=== PATIENT | female | born 1990 | race Caucasian/White ===

== ENCOUNTER → 2017-04-04 | Outpatient (CLI) | payer BC ==
[~2017-04-04] MED LIST: ALBUAER2 INH; CLR10 PO; ETONMIS VAGRING; IBUP-1050 PO; MOME50SP5
--- NOTE | 2017-04-04 11:35 | DIAGNOSTIC IMAGING REPORT ---
SINUS CT CT DOSE: 551.05 mGy.cm HISTORY: RHINITIS, NON ALLERGENIC TECHNIQUE: Multiaxial CT images of the paranasal sinuses were performed and reformatted in the coronal plane without the use of contrast. A dose lowering technique was utilized adhering to the principles of ALARA. COMPARISON: None. FINDINGS: The frontal sinuses, ethmoid air cells, sphenoid sinuses, and bilateral maxillary antra are clear. The mastoid air cells are clear. The bilateral ostiomeatal units are patent. The nasal septum is midline. The orbits are unremarkable. The right anterior clinoid is pneumatized. The lamina papyracea and overall floors are intact. A 4 mm right-sided Ethan cell. The visualized brain parenchyma is unremarkable. IMPRESSION: The paranasal sinuses and mastoid air cells are clear. Electronically signed by: Francisco J Bran M.D. 04/04/2017 11:33 AM Dictated Date/Time: 04/04/2017 11:29 AM
== END | disposition home or self-care (01) ==
LOC: C.CTS 10:49
PROVIDERS: ATTEND Allergy & Immunology
DX: J31.0 Chronic rhinitis (principal); J32.9 Chronic sinusitis, unspecified

== ENCOUNTER 2023-07-08 03:09 | Inpatient (IN) ==
[2023-07-08] MEDS ORDERED: OXYTOCIN 30 UNITS/NSS 30 UNITS/500 ML BAG IV PRN ×2 (04:07→16:02)
[2023-07-08] MEDS ORDERED: LIDOCAINE 1% LOCAL 20 ML VIAL INFIL PRN (04:07)
[2023-07-08] MEDS ORDERED: CALCIUM CARBONATE 500 MG CHEWABLE TAB PO PRN (04:15)
[2023-07-08] MEDS ORDERED: BUTORPHANOL TARTRATE 1 MG/ML VIAL IV PRN (04:16)
--- NOTE | 2023-07-08 04:23 | History & Physical Report ---
Date of Service July 08, 2023 Assessment & Plan (1) Uterine contractions at greater than 20 weeks of gestation: Plan: 32-year-old G1, P0 at 40 weeks and 1 day gestation presenting today with contractions, early labor, Vital signs stable afebrile, heart rate reassuring, GBS negative, Discussed the options of induction, patient desires expectant management for few hours so that she can ambulate, and agrees for augmentation with oxytocin later, Plan to admit, IV fluids, monitor, labs, ambulate, and start oxytocin per protocol, All questions were answered. (2) Post-term , 40-42 weeks of gestation: Admission and Anticipated Discharge Date Admission Date: July 08, 2023 History of Present Illness Chief Complaint: Contractions Primary Care Provider: NO PCP Patient is a 32-year-old G1, P0 at 40 weeks and 1 day gestation who started contractions around midnight. She also had pinkish bloody discharge since 8 PM with no gross leaking. Contractions have been every 4-5 minutes, pain is 5 out of 10. She does not want any pain medications nor epidural for now. She reports good movements. She was originally scheduled for induction of labor for this morning. Her has been uncomplicated except asthma, takes inhaler as needed. GBS negative. Allergies Allergy/AdvReac Type Severity Reaction Status Date / Time fluticasone AdvReac Migraine Verified 07/08/23 03:32 Home Medications Medication Instructions Recorded Confirmed Type Albuterol (Ventolin Hfa) 2 puff inhalation QID PRN asthma 04/06/15 07/08/23 History ##0 Mometasone Furoate (Nasonex) 2 spray NA DAILY #0 BTLS 04/06/15 07/08/23 History enomsplq-sdh-Ns-FA 1 mg 1 tab PO DAILY 07/08/23 07/08/23 History tablet Patient History Medical History GERD (gastroesophageal reflux disease) Asthma Use PRN inhaler, not used in a long time Surgical History [place] teeth extracted Family History Uncle Hypertension Grandfather (Maternal) Hypertension Diabetes Mother Diabetes Uncle Kidney disease Grandmother (Maternal) Thyroid disease Social History Smoking Status: Never smoker Hx Alcohol Use: No Hx Substance Use: No Preferred Language: Japanese Communication Ability: Effective Supervisor Waterproofing Required: No Beliefs That Will Affect Care: None marital status: Current Living Situation: Spouse Current Living Situation Comment: house with Other Information That Helps Us Care for You: No Feels Safe at Home: Yes Assistive Devices: None BOAT OUTFITTER History No history of STDs, no history of chlamydia, gonorrhea, herpes Review of Systems as per Subjective / HPI Physical Exam Constitutional: WD/WN, vitals as above well developed, well nourished and comfortable Gastrointestinal (Abdomen): normal bowel sounds, soft, nontender, no hepatosplenomegaly (Gravid) Genitourinary: normal external appearance OB Exam Abdomen: + vertex Manual OB Exam: + cervical dilation 2 cm (2-3), + cervical effacement 70% and + station -2 OB Exam Monitor Tracing: + external uterine monitor used and + category I Results & Data Vital Signs (Past 12 Hours) Vital Signs Temp Pulse Resp BP O2 Del Method 07/08/23 03:40 36.4 C L 18 Room Air 07/08/23 03:36 36.4 C L 84 18 139/79
[2023-07-08] MEDS ORDERED: ALBUTEROL HFA 8 GM INHALER INH PRN (04:24)
[2023-07-08 04:48] LABS: Mean Corpuscular Hgb Conc 34.2 g/dL (32.0-36.0); Mean Corpuscular Volume 93.6 fL (80.0-100.0); Mean Platelet Volume 10.6 fL (9.4-12.4); Platelet Count 290 K/uL (130-400); RDW Coefficient of Variation 13.2 % (11.5-14.5); RDW Standard Deviation 45.1 fL (36.4-46.3); Red Blood Count 4.06 M/uL (4.20-5.40); White Blood Count 11.51 K/ul (4.8-10.8)
--- OUTSIDE RECORDS SUMMARY | 2023-07-08 04:58 | External Medical Summary | Summary of Care ---
Author Name Unknown Organization [facility] Address [address] [facility] [place] [address] Phone [phone] Care Team Providers Care Organizational Effectiveness Director Name Role Phone Evangelina Ordonez PA-C Primary Care Provide r Reason for Visit * Reason Comments Return Visit Encounter Details Date Type Department Care Team (Late st Contact Info) Description 05/28/2023 9:45 AM EST Office Visit Gynecology/Obstetric s Tomasjoleen Kamara [address] [place] [address] Gypsy Miller CRNP [address] [place] [address] Normal in third trimester*; Maternal asthma complicating ; Obesity in , antepartum Allergies Active Allergy Reactions Criticality Noted Date Comments Fluticasone Propionate 12/15/2013 Headaches, does not get with Nasonex documented as of this encounter (statuses as of 05/28/2023) Medications Medication Sig Dispensed Refills Start Date End Date Status albuterol (VENTOLIN HFA) 108 (90 BASE) MCG/ACT inhaler Inhale 2 Puffs by mouth every 4 hours as needed for Cough, Shortness of Breath or Wheezing (and prior exercise). 3 Inhaler 3 07/01/2018 Active montelukast (SINGULAIR) 10 MG TabletIndications: as needed Take 1 Tablet by mouth every evening. Use for worsening persistent asthma symptoms, cough 90 Tab 3 08/02/2019 Active Azelastine HCl 0.1 % Nasal SolutionIndication s:Seasonal allergies Administer into nostril 2 Sprays in the morning AND 2 Sprays before bedtime. For worsening or more persistent nasal symptoms. 30 mL 5 09/18/2021 Active Famotidine 20 MG Oral Tablet (Pepcid)Indication s:Gastroesophageal reflux disease, unspecified whether esophagitis present Take by mouth 1 Tablet in the morning. 30 Tablet 11 09/18/2021 Active Omeprazole 20 MG Oral Capsule Delayed Release (PriLOSEC)Indicati ons:Gastroesophage al reflux disease, unspecified whether esophagitis present Take by mouth 1 Capsule in the morning. 1 hour before the first meal of the day. 30 Capsule 09/18/2021 Active 28-0.8 MG Oral Tablet Take by mouth. 0 Active Nystatin-Triamcino lone 124800-8.1 UNIT/GM-% External Cream (Mycolog)Indicatio ns:Normal in second trimester,Skin disease, fungal Apply topically to affected area 2 times a day. For 2-3 days. 15 g 0 01/17/2023 Active Breast PumpIndications:No rmal in third trimester Pump daily while 1 Each 0 04/29/2023 Active documented as of this encounter (statuses as of 05/28/2023) Active Problems Problem Noted Date Diagnosed Date Normal 12/17/2022 Maternal asthma complicating 3 Obesity in , antepartum 12/17/2022 Overview: Class 1. Early 1 hr GTT normal. 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 Anxiety and depression 10/01/2018 Gastroesophageal reflux disease with esophagitis 08/14/2017 Chronic vasomotor rhinitis 08/14/2017 Recurrent sinus infections 03/28/2017 Intermittent asthma with reliever use up to twic e per week 03/28/2017 Estimated Date of Delivery Comme nts Yes 07/06/2023 Based on Ultraso und documented as of this encounter (statuses as of 05/28/2023) Resolved Problems Problem Noted Date Diagnosed Date Resolved Date Mild persistent asthma without complication 07/16/2017 08/14/2017 Recurrent infections 05/15/2017 018 Rhinitis, nonallergic 03/28/20172017 Asthma, well controlled 03/28/201707/2016 Asthma in remission 09/12/2014 03/28/20 17 Acute sinusitis 06/26/2012 08/05/2013 Asthma, mild intermittent 10/25/2011 Overview: Seasonal NEEDS pcv23 COSTOCHONDRITIS 04/14/2010 08/29/2010 Cough 04/14/2010 08/29/2010 Allergic rhinitis 04/14/2010 03/28/2017 Acute URI 04/14/2010 08/29/2010 Acute bronchitis, complicated 04/14/2010 08/29/2010 Acute sinusitis 04/14/2010 08/29/2010 ADVANCE DIRECTIVE INFORMATION 01/20/2006 08/14/2017 Overview: Not applicable House dust mite allergy 07/2016 Migraine headache 08/14/2017 documented as of this encounter (statuses as of 05/28/2023) Immunizations Name Administration Dates Next Due COVID-19 mRNA, LNP-s, No Pre serve, 2-Dose Series (Moderna) 05/23/2021,04/25/2021 HPV Vaccine, 4-Valent 10/24/2012,05/12/2012,07/24 Hep A - Hepatitis A (ped/adole, 1-18 Yrs) 2008,01/20/2006 Meningococcal Conjugate Vacc ine (Menactra/Menveo) 08/29/2010 PPD 02/18/2021,01/20/2018,01/17/2017 02/20/2021 Pneumococcal Polysaccharide PPV23 (Pneumovax) 09/18/2021 Seasonal Influenza, PF, 6 M & above, IM , (FluLaval or Fluzone) 03/10/2019,03/13/2018 TDAP (age 10 and older)(Boostrix) 04/29/2023 TDAP (age 11 and older)(Adacel) 08/29/2010 documented as of this encounter Social History Tobacco Use Types Packs/Day Years Used Date Smoking Tobacco: Never Smokeless Tobacco: Never Alcohol Use Standard Drinks/Week Comments No 0 (1 standard drink = 0.6 oz pur e alcohol) PHQ-2 Answer Date Recorded PHQ-2 Score 0 03/10/2019 Hunger Vital Sign Answer Date Recorded Within the past 12 months, y ou worried that your food would run out before you got the money to buy more. Never true 04/11/20 23 Within the past 12 months, t he food you bought just didn't last and you didn't have money to get more. Never true 04/11/2023 [place] Depression Scale Answer Date Recorded [place] Depression Scale Total 1 04/11/2023 The thought of harming myself has occurred to me . Never 04/11/2023 Estimated Date of Delivery Comme nts Yes 07/06/2023 Based on Ultraso und Sex and Gender Information Value Date Recorded Sex Assigned at Female 12/28/2019 9:30 AM EDT Gender Identity Female 12/28/2019 9:30 AM EDT Sexual Orientation Straight 12/28/2019 9: 30 AM EDT Job Start Date Occupation Industry Not on file Not on file Not on file documented as of this encounter Last Filed Vital Signs Vital Sign Reading Time Taken Comments Blood Pressure 106/64 05/28/2023 9:55 AM EST Pulse - - Temperature - - Respiratory Rate - - Oxygen Saturation - - Inhaled Oxygen Concentration - - Weight 94.3 kg (208 lb) 05/28/2023 9:55 AM EST Height 167.6 cm (5' 6") 05/28/2023 9:55 AM EST Body Mass Index 33.57 05/28/2023 9:55 AM EST documented in this encounter Progress Notes * Gypsy Miller CRNP - 05/28/2023 10:16 AM EST 34w3d Started with some mild swelling in hands and feet this past weekend, not bad today. No other concerns. Baby is active. No contractions, no bleeding or LOF. AB Cochran * Natalie Kwan LPN - 05/28/2023 9:56 AM EST 34w3d Swelling in jcarlos hands and LE documented in this encounter Plan of Treatment Upcoming Encounters Date Type Department Care Team (Late st Contact Info) Description 06/13/2023 9:00 AM EST Office Visit Gynecology/Obstetrics Sherrie Kamara [address] [place] [address] Charlene Douglas PA-C [address] [place] [address] 11/20/2023 10:00 AM EDT [facility] [address] [place] [phone] Genoveva Kevin DO [address] [place] [address] Health Maintenance Due Date Last Done Comments Depression Screening 03/10/2020 03/10/2019 Pneumococcal Vaccine: Pediat rics (0 to 5 Years) and At-Risk Patients (6 to 64 Years) (2 - PCV) 09/18/2022 09/18/2021 HPV/Co-Test 2022 COVID-19 Vaccine (3 - 2022-2 4 season) 2023 05/23/2021, 04/25/2021 Influenza Vaccine (FLU shot) (#1) 2023 019, 03/13/2018 Cervical Cancer Screening 09/14/2024 Pap Smear 09/14/2024 09/14/2021, 12/25, 01/20/2018, Additional history exists DTaP,Tdap,and Td Vaccines (9 - Td or Tdap) 04/29/2033 04/29/2023, 08/29/2010, 01/10/2005, Additional history exists Hepatitis B Completed 09/10/1993, 09/1992, 01/01/1993 MENINGOCOCCAL (MENACTRA/MENVEO) Completed 1 GARDASIL-HPV IMMUNIZATION SERIES Completed 10/24/2012, 05/12/2012, 08/12/2011 documented as of this encounter Medical Devices Not on filedocumented as of this encounter Visit Diagnoses Diagnosis Normal in third trimester- Primary Maternal asthma complicating Other current maternal conditions classifiable elsewhere, complicating , childbirth, or the puerperium, unspecified as to episode of care Obesity in , antepartum Obesity complicating , childbirth, or the puerperium, antepartum condition or complication documented in this encounter Care Teams Organizational Effectiveness Director Relationship Specialty Start Date End Date Evangelina Ordonez PA-C [address] [facility] [place] [address] PCP - General Physician Head Sugar Reprocess Operator 09/10/21 documented as of this encounter
--- OUTSIDE RECORDS SUMMARY | 2023-07-08 04:58 | External Medical Summary | Summary of Care ---
Author Name Unknown Organization [facility] Address [address] [facility] [place] [address] Phone [phone] Care Team Providers Care Oracle Applications Analyst Name Role Phone Evangelina Ordonez PA-C Primary Care Provide r Reason for Visit * Reason Comments Return Visit Encounter Details Date Type Department Care Team (Late st Contact Info) Description 07/04/2023 11:45 AM EST Office Visit Gynecology/Obstetric s Tomas[facility]elardomonroe Kamara [address] [place] [address] Charlene Douglas PA-C [address] [place] [address] 39 weeks gestation of *; Normal in third trimester; Maternal asthma complicating ; Obesity in , antepartum Allergies Active Allergy Reactions Criticality Noted Date Comments Fluticasone Propionate 12/15/2013 Headaches, does not get with Nasonex documented as of this encounter (statuses as of 07/04/2023) Medications Medication Sig Dispensed Refills Start Date [...] first meal of the day. 30 Capsule 5 09/18/2021 Active 28-0.8 MG Oral Tablet Take by mouth. 0 Active Nystatin-Triamcino lone 821397-2.1 UNIT/GM-% External Cream (Mycolog)Indicatio ns:Normal in second trimester,Skin disease, fungal Apply topically to affected area 2 times a day. For 2-3 days. 15 g 0 01/17/2023 Active Breast PumpIndications:No rmal in third trimester Pump daily while 1 Each 0 04/29/2023 Active documented as of this encounter (statuses as of 07/04/2023) Active Problems Problem Noted Date Diagnosed Date [...] as of this encounter (statuses as of 07/04/2023) Resolved Problems Problem Noted Date Diagnosed Date [...] as of this encounter (statuses as of 07/04/2023) Immunizations Name Administration Dates Next Due COVID-19 [...] money to get more. Never true 04/11/2023 [place] Depression Scale Answer Date Recorded [place] Depression Scale Total 1 04/11/2023 The thought [...] Sign Reading Time Taken Comments Blood Pressure 124/78 07/04/2023 11:43 AM EST Pulse - - Temperature - - Respiratory Rate - - Oxygen Saturation - - Inhaled Oxygen Concentration - - Weight 101.2 kg (223 lb) 07/04/2023 11:43 AM EST Height 167.6 cm (5' 6") 07/04/2023 11:43 AM EST Body Mass Index 35.99 07/04/2023 11:43 AM EST documented in this encounter Progress Notes * Charlene Douglas PA-C - 07/04/2023 11:45 AM EST 39w5d Denies VB, LOF. Has had a few contractions last week, no regularity. Reports pos fm, reports over last week less major movements from baby states baby feels running out of room. More subtle kicks. Doing kick counts, has not done today however due to busy morning. Offered NST, pt politely declines. Recommend she do FKC as she is headed directly home if <10 movements in 2 hours call. Reviewed IOL for postdates, she would like to schedule for postdates. IOL scheduled for only available spot in next 2 weeks. She will be postdates, scheduled 07/08/2023 given instructions. Labor precautions RTC for visits Charlene Douglas PA-C documented in this encounter Nursing Notes * Rosita Iglesias LPN - 07/04/2023 11:47 AM EST 39w5d Would like to schedule IOL documented in this encounter Plan of Treatment Upcoming Encounters Date Type Department Care Team (Late st Contact Info) Description 11/20/2023 10:00 AM EDT Office Visit Sleep Disorders Ctr [facility] [address] [place] [phone] Genoveva Kevin, [address] [place] [address] Health Maintenance Due Date Last Done Comments [...] as of this encounter Visit Diagnoses Diagnosis 39 weeks gestation of - Primary state, incidental Normal in third trimester Maternal asthma complicating Other current maternal conditions classifiable elsewhere, complicating , childbirth, or the puerperium, unspecified as to episode of care Obesity in , antepartum Obesity complicating , childbirth, or the puerperium, antepartum condition or complication documented in this encounter Care Teams Oracle Applications Analyst Relationship Specialty Start Date End Date Evangelina Ordonez PA-C [address] [facility] [place] [address] PCP - General Physician Radiologic Technologist Mammogram 09/10/21 documented as of this encounter
--- OUTSIDE RECORDS SUMMARY | 2023-07-08 04:58 | External Medical Summary | Summary of Care ---
Author Name Unknown Organization [facility] Address [address] [facility] [place] [address] Phone [phone] Care Team Providers Care Client Sales And Service Officer Name Role Phone Evangelina Ordonez PA-C Primary Care Provide r Reason for Visit * Reason Comments Return Visit Encounter Details Date Type Department Care Team (Late st Contact Info) Description 06/20/2023 11:45 AM EST [facility] [address] [place] [phone] Gonzalez Person MD [address] [place] [address] Normal in third trimester*; Maternal asthma complicating ; Obesity in , antepartum Allergies Active Allergy Reactions Criticality Noted Date Comments Fluticasone Propionate 12/15/2013 Headaches, does not get with Nasonex documented as of this encounter (statuses as of 06/20/2023) Medications Medication Sig Dispensed Refills Start Date [...] Take by mouth. 0 Active Nystatin-Triamcino lone 095638-7.1 UNIT/GM-% External Cream (Mycolog)Indicatio ns:Normal in second trimester,Skin disease, fungal Apply topically to affected area 2 times a day. For 2-3 days. 15 g 0 01/17/2023 Active Breast PumpIndications:No rmal in third trimester Pump daily while 1 Each 0 04/29/2023 Active documented as of this encounter (statuses as of 06/20/2023) Active Problems Problem Noted Date Diagnosed Date [...] as of this encounter (statuses as of 06/20/2023) Resolved Problems Problem Noted Date Diagnosed Date [...] as of this encounter (statuses as of 06/20/2023) Immunizations Name Administration Dates Next Due COVID-19 [...] money to get more. Never true 04/11/2023 [place] Depression Scale Answer Date Recorded [place] Depression Scale Total 1 04/11/2023 The thought [...] Sign Reading Time Taken Comments Blood Pressure 128/74 06/20/2023 11:40 AM EST Pulse - - Temperature - - Respiratory Rate - - Oxygen Saturation - - Inhaled Oxygen Concentration - - Weight 100.2 kg (221 lb) 06/20/2023 11:40 AM EST Height 167.6 cm (5' 6") 06/20/2023 11:40 AM EST Body Mass Index 35.67 06/20/2023 11:40 AM EST documented in this encounter Progress Notes * Gonzalez Person MD - 06/20/2023 2:42 PM EST Pt doing well No complains documented in this encounter Nursing Notes * Rosita Iglesias LPN - 06/20/2023 11:45 AM EST 37w5d Light-headedness, dizziness continues as before. Swelling in hands and feet still present, no worse. documented in this encounter Plan of Treatment Upcoming Encounters Date Type Department Care Team (Late st Contact Info) Description 06/27/2023 9:45 AM EST Office Visit Gynecology/Obstetrics [facility] [address] [place] [address] Gypsy Miller CRNP [address] [place] [address] 07/04/2023 11:45 AM EST Office Visit Gynecology/Obstetrics [facility] [address] [place] [address] Charlene Douglas PA-C [address] [place] [address] 11/20/2023 10:00 AM EDT Office Visit [facility] Disorders [facility] [address] [place] [phone] Genoveva Kevin DO [address] [place] [address] Health Maintenance Due Date Last Done Comments [...] complication documented in this encounter Care Teams Client Sales And Service Officer Relationship Specialty Start Date End Date Evangelina Ordonez PA-C [address] [facility] [place] [address] PCP - General Physician Wet Mixer 09/10/21 documented as of this encounter
--- OUTSIDE RECORDS SUMMARY | 2023-07-08 04:58 | External Medical Summary | Summary of Care ---
Author Name Unknown Organization [facility] Address [address] [facility] [place] [address] Phone [phone] Care Team Providers Care Medical Sales Consultant Name Role Phone Evangelina Ordonez PA-C Primary Care Provide r Encounter Details Date Type Department Care Team (Late st Contact Info) Description 06/06/2023 Telephone Gynecology/Obstetrics [facility] [address] [place] [address] Gypsy Miller CRNP [address] [facility] [address] Allergies Active Allergy Reactions Criticality Noted Date Comments Fluticasone Propionate 12/15/2013 Headaches, does not get with Nasonex documented as of this encounter (statuses as of 06/06/2023) Medications Medication Sig Dispensed Refills Start Date [...] Take by mouth. 0 Active Nystatin-Triamcino lone 012565-0.1 UNIT/GM-% External Cream (Mycolog)Indicatio ns:Normal in second trimester,Skin disease, fungal Apply topically to affected area 2 times a day. For 2-3 days. 15 g 0 01/17/2023 Active Breast PumpIndications:No rmal in third trimester Pump daily while 1 Each 0 04/29/2023 Active documented as of this encounter (statuses as of 06/06/2023) Active Problems Problem Noted Date Diagnosed Date [...] as of this encounter (statuses as of 06/06/2023) Resolved Problems Problem Noted Date Diagnosed Date [...] as of this encounter (statuses as of 06/06/2023) Immunizations Name Administration Dates Next Due COVID-19 [...] money to get more. Never true 04/11/2023 [place] Depression Scale Answer Date Recorded [place] Depression Scale Total 1 04/11/2023 The thought [...] on file documented as of this encounter Miscellaneous Notes * Telephone Encounter - Leah Banks RN - 06/06/2023 12:18 PM EST Patient calling in 35w5d with concerns of b/l swelling of ankles and hands. Improves if she is able to rest/elevate Drinking 5 24 oz bottles a day of water Denies CARPENTER/blurry vision Wearing compression stockings, limiting salt intake. Patient Advised that this is normal for at this point. Denies any bleeding, leaking, contractions. Advised patient to continue pushing fluids, wear compression stockings, and changing positions frequently and walking around/resting and elevating frequently. Patient aware to call back with any changes or worsening sx. documented in this encounter Plan of Treatment Upcoming Encounters Date Type Department Care Team (Late st Contact Info) Description 06/13/2023 9:00 AM EST Office Visit Gynecology/Obstetrics Sherrie Kamara [address] [place] [address] Charlene Douglas PA-C [address] [place] [address] 11/20/2023 10:00 AM EDT Office Visit [facility] [address] [place] [phone] Genoveva Kevin DO [address] [place] [address] Health Maintenance Due Date Last Done Comments [...] Not on filedocumented as of this encounter Care Teams Medical Sales Consultant Relationship Specialty Start Date End Date Evangelina Ordonez PA-C [address] [place] [address] PCP - General Physician Handhole Machine Operator 09/10/21 documented as of this encounter
--- OUTSIDE RECORDS SUMMARY | 2023-07-08 04:58 | External Medical Summary ---
Author Name Unknown Address Unknown Organization K01:[facility] [place] - [address] [facility] [address] Laboratory Report Ordering Provider Test Date Status JULIO CESAR BUSTAMANTE 06/13/2023 09:26:34 Final Observation Date Value Abnormality Reference (Units ) Status Streptococcus agalactiae DNA [Presence] in Specimen by NANI with probe detection 06/13/2023 09:26:34 Negative Negative Final No Group B Streptococcus det ected by culture-enhanced PCR (amplified probe).
The collection of vaginal/rectal swab specimen combinations (FDA approved specimen type) is optimal for the detection of Group B Streptococcus. Single source collection (vaginal only or rectal only) or alternate specimen sources may lead to false negative results. Performing Location [facility] [place] - [address] [facility] [address]
--- OUTSIDE RECORDS SUMMARY | 2023-07-08 04:58 | External Medical Summary | Summary of Care ---
Author Name Unknown Organization [facility] Address [address] [place] [address] Phone [phone] Care Team Providers Care Watch Supervisor Name Role Phone Evangelina Ordonez PA-C Primary Care Provide r Reason for Visit * Reason Comments Return Visit Encounter Details Date Type Department Care Team (Late st Contact Info) Description 06/13/2023 9:00 AM EST Office Visit Gynecology/Obstetric s Sherrie Kamara [address] [place] [address] Charlene Douglas PA-C [address] [place] [address] Normal in third trimester*; Maternal asthma complicating ; Obesity in , antepartum Allergies Active Allergy Reactions Criticality Noted Date Comments Fluticasone Propionate 12/15/2013 Headaches, does not get with Nasonex documented as of this encounter (statuses as of 06/13/2023) Medications Medication Sig Dispensed Refills Start Date [...] Take by mouth. 0 Active Nystatin-Triamcino lone 940366-5.1 UNIT/GM-% External Cream (Mycolog)Indicatio ns:Normal in second trimester,Skin disease, fungal Apply topically to affected area 2 times a day. For 2-3 days. 15 g 0 01/17/2023 Active Breast PumpIndications:No rmal in third trimester Pump daily while 1 Each 0 04/29/2023 Active documented as of this encounter (statuses as of 06/13/2023) Active Problems Problem Noted Date Diagnosed Date [...] as of this encounter (statuses as of 06/13/2023) Resolved Problems Problem Noted Date Diagnosed Date [...] as of this encounter (statuses as of 06/13/2023) Immunizations Name Administration Dates Next Due COVID-19 [...] money to get more. Never true 04/11/2023 [place] Depression Scale Answer Date Recorded [place] Depression Scale Total 1 04/11/2023 The thought [...] Sign Reading Time Taken Comments Blood Pressure 104/68 06/13/2023 8:54 AM EST Pulse - - Temperature - - Respiratory Rate - - Oxygen Saturation - - Inhaled Oxygen Concentration - - Weight 99.3 kg (219 lb) 06/13/2023 8:54 AM EST Height 167.6 cm (5' 6") 06/13/2023 8:54 AM EST Body Mass Index 35.35 06/13/2023 8:54 AM EST documented in this encounter Progress Notes * Charlnee Douglas PA-C - 06/13/2023 9:01 AM EST 36w5d Having continued swelling in hands and feet. Also noticing some lightheadedness at times. Worse with prolonged periods of standing. Improved over night. Legs and hands look appropriate today, radial pulses normal BL. BP WNL. Wears compression stockings. Pushing fluids. Offered urine testing, pt declines today. U/S for position -- confirmed cephalic. Due for GBS, collected. Denies VB, LOF, ctx. Pos fm. RTC in 1 week Charlene Douglas PA-C * Rosita Iglesias LPN - 06/13/2023 8:52 AM EST 36w5d GBS today. BL leg swelling, hands and arms as well, lightheadedness, reports BP is getting high readings at home. documented in this encounter Plan of Treatment Upcoming Encounters Date Type Department Care Team (Late st Contact Info) Description 06/13/2023 10:00 AM EST Imaging Radiology [facility] [address]nd [facility] [address] [place] [address] Normal 06/20/2023 11:45 AM EST Office Visit Gynecology/Obstetrics [facility] [address] [place] [address] Gonzalez Person MD [address] [place] [address] 06/27/2023 9:45 AM EST Office Visit Gynecology/Obstetrics [facility] [address] [place] [address] Gypsy Miller CRNP [address] [place] [address] 07/04/2023 11:45 AM EST Office Visit Gynecology/Obstetrics [facility] [address] [place] [address] Charlene Douglas PA-C [address] [place] [address] 11/20/2023 10:00 AM EDT Office Visit Sleep [facility] [address] [place] [phone] Genoveva Kevin DO [address] [place] [address] Pending Results Name Type Priority Associated Diagnoses Date /Time GROUP B STREP CULTURE/PCR Lab Routine Normal in third trimester 06/13/2023 9:26 AM EST Health Maintenance Due Date Last Done Comments [...] Not on filedocumented as of this encounter Results * US PREG LIMITED 1 OR MORE FETUSES (06/13/2023 9:23 AM EST) Anatomical Region Laterality Modality Pelvis, Body Ultrasound 06/13/2023 9:45 AM EST Impressions 06/13/2023 9:43 AM EST IMPRESSION Vertex presentation. Narrative 06/13/2023 9:43 AM EST EXAM US PREG LIMITED 1 OR MORE FETUSES - 06/13/2023 9:23 am HISTORY position check COMPARISON Ultrasound dated 02/14/2023 TECHNIQUE Sonographic examination performed. FINDINGS : Granados Presentation: Vertex heart rate: 144 bpm Procedure Note Mike Marshall MD - 06/13/2023 EXAM US PREG LIMITED 1 OR MORE FETUSES - 06/13/2023 9:23 am HISTORY position check COMPARISON Ultrasound dated 02/14/2023 TECHNIQUE Sonographic examination performed. FINDINGS : [place] Presentation: Vertex heart rate: 144 bpm IMPRESSION IMPRESSION Vertex presentation. Charlene Douglas PA-C RAD ULTRASOUND documented in this encounter Visit Diagnoses Diagnosis Normal in third trimester- Primary Maternal asthma complicating Other current maternal conditions classifiable elsewhere, complicating , childbirth, or the puerperium, unspecified as to episode of care Obesity in , antepartum Obesity complicating , childbirth, or the puerperium, antepartum condition or complication Normal state, incidental documented in this encounter Care Teams Watch Supervisor Relationship Specialty Start Date End Date Evangelina Ordonez PA-C [address] [facility] [place] [address] PCP - General Physician Sandblast Carver 09/10/21 documented as of this encounter
--- OUTSIDE RECORDS SUMMARY | 2023-07-08 04:58 | External Medical Summary | Summary of Care ---
Author Name Unknown Organization [facility] Address [address] [facility] [place] [address] Phone [phone] Care Team Providers Care Spool Fixer Name Role Phone Evangelina Ordonez PA-C Primary Care Provide r Reason for Visit * Reason Comments Return Visit Encounter Details Date Type Department Care Team (Late st Contact Info) Description 06/27/2023 9:45 AM EST Office Visit Gynecology/Obstetric s Tomasjoleen Kamara [address] [place] [address] Gypsy Miller CRNP [address] [place] [address] Normal in third trimester*; Maternal asthma complicating ; Obesity in , antepartum Allergies Active Allergy Reactions Criticality Noted Date Comments Fluticasone Propionate 12/15/2013 Headaches, does not get with Nasonex documented as of this encounter (statuses as of 06/27/2023) Medications Medication Sig Dispensed Refills Start Date [...] Take by mouth. 0 Active Nystatin-Triamcino lone 516903-5.1 UNIT/GM-% External Cream (Mycolog)Indicatio ns:Normal in second trimester,Skin disease, fungal Apply topically to affected area 2 times a day. For 2-3 days. 15 g 0 01/17/2023 Active Breast PumpIndications:No rmal in third trimester Pump daily while 1 Each 0 04/29/2023 Active documented as of this encounter (statuses as of 06/27/2023) Active Problems Problem Noted Date Diagnosed Date [...] as of this encounter (statuses as of 06/27/2023) Resolved Problems Problem Noted Date Diagnosed Date [...] as of this encounter (statuses as of 06/27/2023) Immunizations Name Administration Dates Next Due COVID-19 [...] money to get more. Never true 04/11/2023 [place] Depression Scale Answer Date Recorded [place] Depression Scale Total 1 04/11/2023 The thought [...] Sign Reading Time Taken Comments Blood Pressure 116/68 06/27/2023 9:39 AM EST Pulse - - Temperature - - Respiratory Rate - - Oxygen Saturation - - Inhaled Oxygen Concentration - - Weight 98.9 kg (218 lb) 06/27/2023 9:39 AM EST Height 167.6 cm (5' 6") 06/27/2023 9:39 AM EST Body Mass Index 35.19 06/27/2023 9:39 AM EST documented in this encounter Progress Notes * Gypsy Miller CRNP - 06/27/2023 9:51 AM EST 38w5d Complaints: none Feeling well overall. Good FM. No contractions, bleeding, or LOF. AB Cochran * Natalie Kwan LPN - 06/27/2023 9:39 AM EST 38w5d Denies any issues documented in this encounter Plan of Treatment Upcoming Encounters Date Type Department Care Team (Late st Contact Info) Description 07/04/2023 11:45 AM EST Office Visit Gynecology/Obstetrics Sherrie Kamara [address] [place] [address] Charlene Douglas PA-C [address] [place] [address] 11/20/2023 10:00 AM EDT [facility] [address] [place] [phone] Genoveva Kevin DO [address] [place] [address] Health Maintenance Due Date Last Done Comments [...] complication documented in this encounter Care Teams Spool Fixer Relationship Specialty Start Date End Date Evangelina Ordonez PA-C [address] [facility] [place] [address] PCP - General Physician Water Treatment Plant Supervisor 09/10/21 documented as of this encounter
--- OUTSIDE RECORDS SUMMARY | 2023-07-08 04:58 | External Medical Summary | Summary of Care ---
Author Name Unknown Organization [facility] Address [address] [facility] [place] [address] Phone [phone] Care Team Providers Care Plating Machine Operator Name Role Phone Evangelina Ordonez PA-C Primary Care Provide r Reason for Visit * Reason Comments Return Visit Encounter Details Date Type Department Care Team (Late st Contact Info) Description 04/29/2023 8:30 AM EST Office Visit Gynecology/Obstetric [facility] [address] [place] [address] Gonzalez Person MD [address] [place] [address] Normal in third trimester*; Maternal asthma complicating ; Obesity in , antepartum Allergies Active Allergy Reactions Criticality Noted Date Comments Fluticasone Propionate 12/15/2013 Headaches, does not get with Nasonex documented as of this encounter (statuses as of 04/29/2023) Medications Medication Sig Dispensed Refills Start Date [...] Take by mouth. 0 Active Nystatin-Triamcino lone 569653-1.1 UNIT/GM-% External Cream (Mycolog)Indicatio ns:Normal in second trimester,Skin disease, fungal Apply topically to affected area 2 times a day. For 2-3 days. 15 g 0 01/17/2023 Active Breast PumpIndications:No rmal in third trimester Pump daily while 1 Each 0 04/29/2023 Active documented as of this encounter (statuses as of 04/29/2023) Active Problems Problem Noted Date Diagnosed Date [...] as of this encounter (statuses as of 04/29/2023) Resolved Problems Problem Noted Date Diagnosed Date [...] as of this encounter (statuses as of 04/29/2023) Immunizations Name Administration Dates Next Due COVID-19 mRNA, LNP-s, No Pre serve, 2-Dose Series (Moderna) 05/23/2021,04/25/2021 HPV Vaccine, 4-Valent 10/24/2012,05/12/2012,07/24 Hep A - Hepatitis A (ped/adole, 1-18 Yrs) 2008,01/20/2006 Meningococcal Conjugate Vacc ine (Menactra/Menveo) 08/29/2010 PPD 02/18/2021,01/20/2018,01/17/2017 02/20/2021 Pneumococcal Polysaccharide PPV23 (Pneumovax) 09/18/2021 SEASONAL INFLUENZA, PF, 6 M & Above, IM , (FLULAVAL or FLUZONE) 03/10/2019,03/13/2018 TDAP (age 10 and older)(Boostrix) 04/29/2023 [...] money to get more. Never true 04/11/2023 [place] Depression Scale Answer Date Recorded [place] Depression Scale Total 1 04/11/2023 The thought [...] Sign Reading Time Taken Comments Blood Pressure - - Pulse - - Temperature - - Respiratory Rate - - Oxygen Saturation - - Inhaled Oxygen Concentration - - Weight 90.7 kg (200 lb) 04/29/2023 8:31 AM EST Height 167.6 cm (5' 6") 04/29/2023 8:31 AM EST Body Mass Index 32.28 04/29/2023 8:31 AM EST documented in this encounter Progress Notes * Gonzalez Person MD - 04/29/2023 8:46 AM EST Pt doing well No complaints RTC 2 weeks * Natalie Kwan LPN - 04/29/2023 8:31 AM EST 30w2d Needs tdap documented in this encounter Nursing Notes * Natalie Kwan LPN - 04/29/2023 8:36 AM EST Patient here for tdap injection. Patient doing well no complaints. Injection given IM as ordered. Patient tolerated well. Patient to follow up as directed. Patient instructed to call if any complications. Patient verbalized understanding of instructions given and her follow up appt for 2 weeks Injection site: Right Deltoid Medication Source: Dispensed stock medication' documented in this encounter Plan of Treatment Upcoming Encounters Date Type Department Care Team (Late st Contact Info) Description 05/16/2023 10:45 AM EST Office Visit Gynecology/Obstetrics Sherrie Kamara [address] [place] [address] Gypsy Miller CRNP [address] [place] [address] 11/20/2023 10:00 AM EDT [facility] [address] [place] [phone] Genoveva Kevin DO [address] [place] [address] Health Maintenance Due Date Last Done Comments [...] complication documented in this encounter Care Teams Plating Machine Operator Relationship Specialty Start Date End Date Evangelina Ordonez PA-C [address] [facility] [place] [address] PCP - General Physician Boring Machine Operator Horizontal 09/10/21 documented as of this encounter
--- OUTSIDE RECORDS SUMMARY | 2023-07-08 04:58 | External Medical Summary | Summary of Care ---
Author Name Unknown Organization [facility] Address [address] [facility] [place] [address] Phone [phone] Care Team Providers Care Bus Matron Name Role Phone Evangelina Ordonez PA-C Primary Care Provide r Reason for Visit * Reason Comments Return Visit Encounter Details Date Type Department Care Team (Late st Contact Info) Description 05/16/2023 10:45 AM EST Office Visit Gynecology/Obstetric s Tomasjoleen Kamara [address] [place] [address] Gypsy Miller CRNP [address] [place] [address] Normal in third trimester*; Maternal asthma complicating ; Obesity in , antepartum Allergies Active Allergy Reactions Criticality Noted Date Comments Fluticasone Propionate 12/15/2013 Headaches, does not get with Nasonex documented as of this encounter (statuses as of 05/16/2023) Medications Medication Sig Dispensed Refills Start Date [...] Take by mouth. 0 Active Nystatin-Triamcino lone 494263-7.1 UNIT/GM-% External Cream (Mycolog)Indicatio ns:Normal in second trimester,Skin disease, fungal Apply topically to affected area 2 times a day. For 2-3 days. 15 g 0 01/17/2023 Active Breast PumpIndications:No rmal in third trimester Pump daily while 1 Each 0 04/29/2023 Active documented as of this encounter (statuses as of 05/16/2023) Active Problems Problem Noted Date Diagnosed Date [...] as of this encounter (statuses as of 05/16/2023) Resolved Problems Problem Noted Date Diagnosed Date [...] as of this encounter (statuses as of 05/16/2023) Immunizations Name Administration Dates Next Due COVID-19 [...] to get more. Never true 04/11/2023 [place] Depression Scale Answer Date Recorded [place] Depression Scale Total 1 04/11/2023 The thought [...] Sign Reading Time Taken Comments Blood Pressure 98/58 05/16/2023 10:49 AM EST Pulse - - Temperature - - Respiratory Rate - - Oxygen Saturation - - Inhaled Oxygen Concentration - - Weight 91.6 kg (202 lb) 05/16/2023 10:49 AM EST Height 167.6 cm (5' 6") 05/16/2023 10:49 AM EST Body Mass Index 32.6 05/16/2023 10:49 AM EST documented in this encounter Progress Notes * Gypsy Miller CRNP - 05/16/2023 11:12 AM EST 32w5d No concerns. Normal aches and pains of . Baby is active. No contractions, bleeding, or LOF. AB Cochran * Natalie Kwan LPN - 05/16/2023 10:49 AM EST 32w5d Denies any issues documented in this encounter Plan of Treatment Upcoming Encounters Date Type Department Care Team (Late st Contact Info) Description 05/28/2023 9:45 AM EST Office Visit Gynecology/Obstetrics Sherrie Kamara [address] [place] [address] Gypsy Miller CRNP [address] [place] [address] 11/20/2023 10:00 AM EDT [facility] [address] [place] [phone] Genoveva Kevin DO [address] [place] [address] Health Maintenance Due Date Last Done Comments [...] complication documented in this encounter Care Teams Bus Matron Relationship Specialty Start Date End Date Evangelina Ordonez PA-C [address] [facility] [place] [address] PCP - General Physician Automobile Inspector 09/10/21 documented as of this encounter
--- OUTSIDE RECORDS SUMMARY | 2023-07-08 04:59 | External Medical Summary | Summary of Care ---
Author Name Unknown Organization [facility] Address [address] [address] Phone [phone] Care Team Providers Care Statistical Secretary Name Role Phone Evangelina Ordonez PA-C Primary Care Provide r Reason for Visit * Reason Comments Return Visit Encounter Details Date Type Department Care Team Description 03/14/2023 Office Visit Gynecology/Obstetrics [facility] [address] [place] [address] Charlene Douglas PA-C [address] [place] [address] 23 weeks gestation of *; Normal in second trimester; Maternal asthma complicating ; Obesity in , antepartum Allergies Active Allergy Reactions Severity Noted Date Comments Fluticasone Propionate 12/15/2013 Headaches, does not get with Nasonex documented as of this encounter (statuses as of 03/14/2023) Medications Medication Sig Dispensed Refills Start Date End Date Status albuterol (VENTOLIN HFA) 108 (90 BASE) MCG/ACT inhaler Inhale 2 Puffs by mouth every 4 hours as needed for Cough, Shortness of Breath or Wheezing (and prior exercise). 3 Inhaler 3 07/01/2018 Active montelukast (SINGULAIR) 10 MG TabletIndications:a s needed Take 1 Tablet by mouth every evening. Use for worsening persistent asthma symptoms, cough 90 Tab 3 08/02/2019 Active Azelastine HCl 0.1 % Nasal SolutionIndications :Seasonal allergies Administer into nostril 2 Sprays in the morning AND 2 Sprays before bedtime. For worsening or more persistent nasal symptoms. 30 mL 5 09/18/2021 Active Famotidine 20 MG Oral Tablet (Pepcid)Indications :Gastroesophageal reflux disease, unspecified whether esophagitis present Take by mouth 1 Tablet in the morning. 30 Tablet 11 09/18/2021 Active Omeprazole 20 MG Oral Capsule Delayed Release (PriLOSEC)Indicatio ns:Gastroesophageal reflux disease, unspecified whether esophagitis present Take by mouth 1 Capsule in the morning. 1 hour before the first meal of the day. 30 Capsule 09/18/2021 Active 28-0.8 MG Oral Tablet Take by mouth. 0 Active Nystatin-Triamcinol one 633257-8.1 UNIT/GM-% External Cream (Mycolog)Indication s:Normal in second trimester,Skin disease, fungal Apply topically to affected area 2 times a day. For 2-3 days. 15 g 0 01/17/2023 Active documented as of this encounter (statuses as of 03/14/2023) Active Problems Problem Noted Date Normal 12/17/2022 Maternal asthma complicating 0 12/17/2022 Obesity in , antepartum 023 Overview: Class 1. Early 1 hr GTT normal. 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 Anxiety and depression 10/01/2018 Gastroesophageal reflux disease with eso phagitis 08/14/2017 Chronic vasomotor rhinitis 08/14/2017 Recurrent sinus infections 03/28/2017 Intermittent asthma with reliever use up to twice per week 03/28/2017 Estimated Date of Delivery Comme nts Yes 07/06/2023 Based on Ultraso und documented as of this encounter (statuses as of 03/14/2023) Resolved Problems Problem Noted Date Resolved Date Mild persistent asthma without complication 06/2708/14/2017 Recurrent infections 05/15/2017 08/14/2017 Rhinitis, nonallergic 03/28/2017 08/14/2017 Asthma, well controlled 03/28/2017 03/28/20 17 Asthma in remission 09/12/2014 03/28/2017 Acute sinusitis 06/26/2012 08/05/2013 Asthma, mild intermittent 10/25/20112014 Overview: Seasonal NEEDS pcv23 COSTOCHONDRITIS 04/14/2010 08/29/2010 Cough 04/14/2010 08/29/2010 Allergic rhinitis 04/14/2010 03/28/2017 Acute URI 04/14/2010 08/29/2010 Acute bronchitis, complicated 04/14/2010 Acute sinusitis 04/14/2010 08/29/2010 ADVANCE DIRECTIVE INFORMATION 01/20/2006 Overview: Not applicable House dust mite allergy 03/28/20 17 Migraine headache 08/14/2017 documented as of this encounter (statuses as of 03/14/2023) Immunizations Name Administration Dates Next Due COVID-19 mRNA, LNP-s, No Pre serve, 2-Dose Series (Moderna) 05/23/2021,04/25/2021 HPV Vaccine, 4-Valent 10/24/2012,05/12/2012,07/24 Hep A - Hepatitis A (ped/adole, 1-18 Yrs) 2008,01/20/2006 Meningococcal Conjugate Vacc ine (Menactra/Menveo) 08/29/2010 PPD 02/18/2021,01/20/2018,01/17/2017 02/20/2021 Pneumococcal Polysaccharide PPV23 (Pneumovax) 09/18/2021 SEASONAL INFLUENZA, PF, 6 M & Above, IM , (FLULAVAL or FLUZONE) 03/10/2019,03/13/2018 TDAP (age 11 and older)(Adacel) 08/29/2010 documented as of this encounter Social History Tobacco Use Types Packs/Day Years Used Date Smoking Tobacco: Never Smokeless Tobacco: Never Alcohol Use Standard Drinks/Week Comments No 0 (1 standard drink = 0.6 oz pur e alcohol) Food Insecurity Answer Date Recorded Within the past 12 months, y ou worried that your food would run out before you got money to buy more. Never true 12/28/2019 Within the past 12 months, t he food you bought just didn't last and you didn't have money to get more. Never true 12/28/2019 Estimated Date of Delivery Comme nts Yes 07/06/2023 Based on Ultraso und Sex Assigned at Date Recorded Female 12/28/2019 9:30 AM E DT Job Start Date Occupation Industry Not on file Not on file Not on file documented as of this encounter Last Filed Vital Signs Vital Sign Reading Time Taken Comments Blood Pressure 108/54 03/14/2023 8:59 AM EDT Pulse - - Temperature - - Respiratory Rate - - Oxygen Saturation - - Inhaled Oxygen Concentration - - Weight 88.5 kg (195 lb) 03/14/2023 8:59 AM EDT Height 167.6 cm (5' 6") 03/14/2023 8:59 AM EDT Body Mass Index 31.47 03/14/2023 8:59 AM EDT documented in this encounter Progress Notes * Charlene Douglas PA-C - 03/14/2023 9:15 AM EDT 23w4d Third trimester labs ordered including glucola. To be completed with next visit. Had normal 1 hour gtt. Reviewed Tdap with next visit, indications and recommendation for vaccination in . Under some increase stress at home d/t pipe breaking and being out of town. Managing fine on her own. Denies VB/LOF/ctx. Pos FM. RTC 4 weeks Charlene Douglas PA-C * Rosita Armstrong LPN - 03/14/2023 9:06 AM EDT 23w5d Denies concerns. documented in this encounter Plan of Treatment Upcoming Encounters Date Type Specialty Care Team Description 04/11/2023 Laboratory Laboratory [facility] [address] [place] [id number] 04/11/2023 Office Visit Gynecology Obstetrics Charlene Douglas PA-C [address] [place] [address] 11/20/2023 Office Visit Sleep Disorders Genoveva Kevin [address] [place] [address] Scheduled Orders Name Type Priority Associated Diagnoses Orde r Schedule CBC WITH WBC DIFFERENTIAL AND ANEMIA REFLEX WORKUP Lab Routine 23 weeks gestation of Expected: 03/28/2023, Expires: 03/14/2024 50-G GESTATIONAL GLUCOSE, 1 HOUR Lab Routine 23 weeks gestation of Expected: 03/14/2023 (Approximate), Expires: 03/14/2024 SYPHILIS ANTIBODY SCREEN WITH REFLEX TO RPR Lab Routine 23 weeks gestation of Expected: 03/14/2023 (Approximate), Expires: 03/14/2024 Health Maintenance Due Date Last Done Comments Depression Screening 03/10/2020 03/10/2019 DTaP,Tdap,and Td Vaccines (8 - Td or Tdap) 08/29/2020 08/29/2010, 01/10/2005, 12/15/1997, Additional history exists Pneumococcal Vaccine: Pediat rics (0 to 5 Years) and At-Risk Patients (6 to 64 Years) (2 - PCV) 09/18/2022 09/18/2021 HPV/Co-Test 2022 COVID-19 Vaccine (3 - 2022-2 4 season) 2023 05/23/2021, 04/25/2021 Influenza Vaccine (FLU shot) (#1) 2023 019, 03/13/2018 Cervical Cancer Screening 09/14/2024 Pap Smear 09/14/2024 09/14/2021, 12/25, 01/20/2018, Additional history exists Hepatitis B Completed 09/10/1993, 09/1992, 01/01/1993 MENINGOCOCCAL (MENACTRA/MENVEO) Completed 1 GARDASIL-HPV IMMUNIZATION SERIES Completed 10/24/2012, 05/12/2012, 08/12/2011 documented as of this encounter Medical Devices Not on filedocumented as of this encounter Visit Diagnoses Diagnosis 23 weeks gestation of - Primary state, incidental Normal in second trimester Maternal asthma complicating Other current maternal conditions classifiable elsewhere, complicating , childbirth, or the puerperium, unspecified as to episode of care Obesity in , antepartum Obesity complicating , childbirth, or the puerperium, antepartum condition or complication documented in this encounter Care Teams Statistical Secretary Relationship Specialty Start Date End Date Evangelina Ordonez PA-C [address] [facility] [place] [address] PCP - General Physician Narcotics Agent 09/10/21 documented as of this encounter
--- OUTSIDE RECORDS SUMMARY | 2023-07-08 04:59 | External Medical Summary | Summary of Care ---
Author Name Unknown Organization [facility] Address [address] [facility] [place] [address] Phone [phone] Care Team Providers Care Power Grader Operator Name Role Phone Evangelina Ordonez PA-C Primary Care Provide r Reason for Visit * Reason Comments Return Visit Encounter Details Date Type Department Care Team (Late st Contact Info) Description 04/11/2023 11:30 AM EST Office Visit Gynecology/Obstetric s Sherrie Kamara [address] [place] [address] Charlene Douglas PA-C [address] [place] [address] Normal in third trimester*; Maternal asthma complicating ; Obesity in , antepartum Allergies Active Allergy Reactions Criticality Noted Date Comments Fluticasone Propionate 12/15/2013 Headaches, does not get with Nasonex documented as of this encounter (statuses as of 04/11/2023) Medications Medication Sig Dispensed Refills Start Date [...] 1 Tablet in the morning. 30 Tablet 09/18/2021 Active Omeprazole 20 MG Oral Capsule Delayed Release (PriLOSEC)Indicatio ns:Gastroesophageal reflux disease, unspecified whether esophagitis present Take by mouth 1 Capsule in the morning. 1 hour before the first meal of the day. 30 Capsule 09/18/2021 Active 28-0.8 MG Oral Tablet Take by mouth. 0 Active Nystatin-Triamcinol one 566412-1.1 UNIT/GM-% External Cream (Mycolog)Indication s:Normal in second trimester,Skin disease, fungal Apply topically to affected area 2 times a day. For 2-3 days. 15 g 0 01/17/2023 Active documented as of this encounter (statuses as of 04/11/2023) Active Problems Problem Noted Date Diagnosed Date Normal 12/17/2022 Maternal asthma complicating Obesity in , antepartum 12/17/2022 Overview: Class [...] as of this encounter (statuses as of 04/11/2023) Resolved Problems Problem Noted Date Diagnosed Date Resolved Date Mild persistent asthma without complication 07/16/2017 08/14/2017 Recurrent infections 05/15/2017 018 Rhinitis, nonallergic 03/28/20172017 Asthma, well controlled 03/28/201707/2016 Asthma in remission 09/12/2014 03/28/20 Acute sinusitis 06/26/2012 08/05/2013 Asthma, mild intermittent 10/25/2011 Overview: Seasonal NEEDS pcv23 COSTOCHONDRITIS 04/14/2010 08/29/2010 Cough 04/14/2010 08/29/2010 Allergic rhinitis 04/14/2010 03/28/2017 Acute URI 04/14/2010 08/29/2010 Acute bronchitis, complicated 04/14/2010 08/29/2010 Acute sinusitis 04/14/2010 08/29/2010 ADVANCE DIRECTIVE INFORMATION 01/20/2006 08/14/2017 Overview: Not applicable House dust mite allergy 07/2016 Migraine headache 08/14/2017 documented as of this encounter (statuses as of 04/11/2023) Immunizations Name Administration Dates Next Due COVID-19 [...] money to get more. Never true 04/11/2023 Killen Depression Scale Answer Date Recorded Killen Depression Scale Total 1 04/11/2023 The thought [...] Sign Reading Time Taken Comments Blood Pressure 96/58 04/11/2023 11:11 AM EST Pulse - - Temperature - - Respiratory Rate - - Oxygen Saturation - - Inhaled Oxygen Concentration - - Weight 89.4 kg (197 lb) 04/11/2023 11:11 AM EST Height 167.6 cm (5' 6") 04/11/2023 11:11 AM EST Body Mass Index 31.8 04/11/2023 11:11 AM EST documented in this encounter Progress Notes * Charlene Douglas PA-C - 04/11/2023 11:44 AM EST 27w5d Completing glucola and other labs today. Has noticed a few episodes of lightheadedness. Resolve quickly. Has not passed out. Pushing fluids. Checking Hgb today with other labs. Becoming more uncomfortable sleeping at night. Declines flu vaccine. Agreeable to Tdap, left beforegiven. Will plan for next visit. Denies bleeding, leaking. BH contractions. Reviewed [facility]. Call if < 10 movements in 2/hrs. RTC in 2 weeks Charlene Douglas PA-C * Rosita Iglesias LPN - 04/11/2023 11:19 AM EST 27w5d ctx. Lightheadedness, random. Not with standing. Completing labs today, would like TDAP. Denies concerns. documented in this encounter Plan of Treatment Upcoming Encounters Date Type Department Care Team (Late st Contact Info) Description 04/28/2023 8:45 AM EST [facility] [address] [place] [address] Annie Henry, JENNA [address] [facility] [place] [address] 11/20/2023 10:00 AM EDT [facility] [address] [place] [phone] Genoveva Kevin DO [address] [place] [address] Health Maintenance Due Date Last Done Comments [...] complication documented in this encounter Care Teams Power Grader Operator Relationship Specialty Start Date End Date Evangelina Ordonez PA-C [address] [facility] [place] [address] PCP - General Physician Director Industrial Relations 09/10/21 documented as of this encounter
--- OUTSIDE RECORDS SUMMARY | 2023-07-08 04:59 | External Medical Summary | Summary of Care ---
Author Name Unknown Organization [facility] Address [address] [facility] [facility] [address] [address] [address] Phone [phone] Care Team Providers Care Band Salvager Name Role Phone Evangelina Ordonez PA-C Primary Care Provide r Reason for Visit * Reason Comments Return Visit Encounter Details Date Type Department Care Team Description 01/17/2023 Office Visit Gynecology/Obstetrics [facility] [address] [place] [address] Charlene Douglas PA-C [address] [place] [address] Normal in second trimester*; Maternal asthma complicating ; Obesity in , antepartum; Skin disease, fungal Allergies Active Allergy Reactions Severity Noted Date Comments Fluticasone Propionate 12/15/2013 Headaches, does not get with Nasonex documented as of this encounter (statuses as of 01/17/2023) Medications Medication Sig Dispensed Refills Start Date [...] Take by mouth. 0 Active Nystatin-Triamcinol one 133964-6.1 UNIT/GM-% External Cream (Mycolog)Indication s:Normal in second trimester,Skin disease, fungal Apply topically to affected area 2 times a day. For 2-3 days. 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 Anxiety and depression 10/01/2018 Gastroesophageal reflux disease with eso phagitis 08/14/2017 Chronic vasomotor rhinitis 08/14/2017 Recurrent sinus infections 03/28/2017 Intermittent asthma with reliever use up to twice per week 03/28/2017 Estimated Date of Delivery Comme nts Yes 07/06/2023 Based on Ultraso und documented as of this encounter (statuses as of 01/17/2023) Resolved Problems Problem Noted Date Resolved Date [...] as of this encounter (statuses as of 01/17/2023) Immunizations Name Administration Dates Next Due COVID-19 mRNA, LNP-s, No Pre serve, 2-Dose Series (Moderna) 05/23/2021,04/25/2021 HPV Vaccine, 4-Valent 10/24/2012,05/12/2012,07/24 Hep A - Hepatitis A (ped/adole, 1-18 Yrs) 2008,01/20/2006 Meningococcal Conjugate Vacc ine (Menactra/Menveo) 08/29/2010 PPD 02/18/2021,01/20/2018,01/17/2017 02/20/2021 Pneumococcal Polysaccharide PPV23 (Pneumovax) 09/18/2021 Seasonal Influenza, PF, 6 mo ns & Above, IM , (Flulaval) 03/10/2019,03/13/2018 TDAP (age 11 and older)(Adacel) 08/29/2010 [...] Sign Reading Time Taken Comments Blood Pressure 98/60 01/17/2023 9:02 AM EDT Pulse - - Temperature - - Respiratory Rate - - Oxygen Saturation - - Inhaled Oxygen Concentration - - Weight 86.2 kg (190 lb) 01/17/2023 9:02 AM EDT Height 167.6 cm (5' 6") 01/17/2023 9:02 AM EDT Body Mass Index 30.67 01/17/2023 9:02 AM EDT documented in this encounter Progress Notes * Charlene Douglas PA-C - 01/17/2023 9:20 AM EDT 15w5d Completing early glucola today. Still with rash on breast, monistat sent helped a little but still present. Itchy at times. Asking if provider can revaluate. Mycolog sent for mild rash bilateral inner lower breast. Notify office if not improving. Anatomy next visit. Declines genetic testing. Some spots in vision only while in shower. Denies lightheadness and dizziness. BP WNL. Female division service manager requested by provided: Name of Public Health Representative: Moira Patrick LPN RTC in 4 weeks Charlene Douglas PA-C * Natalie Kwan LPN - 01/17/2023 9:03 AM EDT 15w5d Doing early glucola Fungal cream helped with spots on breast but still has spots Sometimes sees sparkles for limited time notices in the shower documented in this encounter Plan of Treatment Upcoming Encounters Date Type Specialty Care Team Description 02/14/2023 Imaging Radiology 02/14/2023 Office Visit Gynecology Obstetrics [place], AB Pulliam [address] [place] [address] 11/20/2023 Office Visit Sleep Disorders Genoveva Kevin DO [address] [place] [address] Scheduled Orders Name Type Priority Associated Diagnoses Orde r Schedule US PREG SINGLE/1ST GEST, 14 WEEKS OR LATER Medical Imaging Routine Normal in second trimester Expected: 02/17/2023, Expires: 02/18/2024 Health Maintenance Due Date Last Done Comments Depression Screening, Annual for Pts 12 and Over 03/10/2020 03/10/2019 DTaP,Tdap,and Td Vaccines (8 - Td or Tdap) 08/29/2020 08/29/2010, 01/10/2005, 12/15/1997, Additional history exists COVID-19 Vaccine (3 - Modern a series) 07/18/2021 05/23/2021, 04/25/2021 Pneumococcal Vaccine: Pediat rics (0 to 5 Years) and At-Risk Patients (6 to 64 Years) (2 - PCV) 09/18/2022 09/18/2021 HPV/Co-Test 2022 Influenza Vaccine (FLU shot) (#1) 2023 019, 03/13/2018 Cervical Cancer Screening 09/14/2024 Pap Smear 09/14/2024 09/14/2021, 12/25, 01/20/2018, Additional history exists Hepatitis B Completed 09/10/1993, 09/1992, 01/01/1993 MENINGOCOCCAL (MENACTRA/MENVEO) Completed 1 GARDASIL-HPV IMMUNIZATION SERIES Completed 10/24/2012, 05/12/2012, 08/12/2011 Hepatitis C Screening Completed 12/17/2022 , 12/17/2022, 12/17/2022 documented as of this encounter Medical Devices Not on filedocumented as of this encounter Visit Diagnoses Diagnosis Normal in second trimester- Primary Maternal asthma complicating Other current maternal conditions classifiable elsewhere, complicating , childbirth, or the puerperium, unspecified as to episode of care Obesity in , antepartum Obesity complicating , childbirth, or the puerperium, antepartum condition or complication Skin disease, fungal Dermatomycosis, unspecified documented in this encounter Care Teams Band Salvager Relationship Specialty Start Date End Date Evangelina Ordonez PA-C [address] [place] [address] PCP - General Physician Oral Hygienist 09/10/21 documented as of this encounter
--- OUTSIDE RECORDS SUMMARY | 2023-07-08 04:59 | External Medical Summary | Summary of Care ---
Author Name Unknown Organization [facility] Address [address] [facility] [place] [address] Phone [phone] Care Team Providers Care Templer Head Name Role Phone Evangelina Ordonez PA-C Primary Care Provide r Reason for Visit * Reason Comments Return Visit Encounter Details Date Type Department Care Team Description 02/14/2023 Office Visit Gynecology/Obstetrics [facility] [address] [place] [address] Brooke Madison CRNP [address] [place] [address] Normal in second trimester*; Maternal asthma complicating ; Obesity in , antepartum Allergies Active Allergy Reactions Severity Noted Date Comments Fluticasone Propionate 12/15/2013 Headaches, does not get with Nasonex documented as of this encounter (statuses as of 02/14/2023) Medications Medication Sig Dispensed Refills Start Date [...] Take by mouth. 0 Active Nystatin-Triamcinol one 904977-6.1 UNIT/GM-% External Cream (Mycolog)Indication s:Normal in second trimester,Skin disease, fungal Apply topically to affected area 2 times a day. For 2-3 days. 15 g 0 01/17/2023 Active documented as of this encounter (statuses as of 02/14/2023) Active Problems Problem Noted Date Normal 12/17/2022 [...] as of this encounter (statuses as of 02/14/2023) Resolved Problems Problem Noted Date Resolved Date Mild persistent asthma without complication 06/2708/14/2017 Recurrent infections 05/15/2017 08/14/2017 Rhinitis, nonallergic 03/28/2017 08/14/2017 Asthma, well controlled 03/28/2017 11/03/20 17 Asthma in remission 09/12/2014 03/28/2017 Acute [...] as of this encounter (statuses as of 02/14/2023) Immunizations Name Administration Dates Next Due COVID-19 [...] Sign Reading Time Taken Comments Blood Pressure 104/62 02/14/2023 11:35 AM EDT Pulse - - Temperature - - Respiratory Rate - - Oxygen Saturation - - Inhaled Oxygen Concentration - - Weight - - Height - - Body Mass Index - - documented in this encounter Progress Notes * AB Sanders - 02/14/2023 11:30 AM EDT 19w 5d + movement. Denies cramping/bleeding. Declines genetic screening. No concerns. Anatomy scan done today, report normal, + cardiac activity. Having a girl. 4 week return AB Ren documented in this encounter Nursing Notes * Leah Banks RN - 02/14/2023 11:36 AM EDT Patient here for CARLOS Had anatomy today 19w5d No concerns today documented in this encounter Plan of Treatment Upcoming Encounters Date Type Specialty Care Team Description 03/14/2023 Office Visit Gynecology Obstetrics Charlene Douglas PA-C [address] [place] [address] 11/20/2023 Office Visit Sleep Disorders Genoveva Kevin DO [address] [place] [address] Health Maintenance Due Date Last Done Comments [...] complication documented in this encounter Care Teams Templer Head Relationship Specialty Start Date End Date Evangelina Ordonez PA-C [address] [place] [address] PCP - General Physician Career Services Assistant 09/10/21 documented as of this encounter
--- OUTSIDE RECORDS SUMMARY | 2023-07-08 04:59 | External Medical Summary ---
Author Name Unknown Address Unknown Organization [id number]:[facility] [place] [address] [place] [address] Laboratory Report Ordering Provider Test Date Status JULIO CESAR BUSTAMANTE 04/11/2023 12:10:49 Final Observation Date Value Abnormality Reference (Units ) Status WBC, Total 04/11/2023 12:10:49 9.30 4.00-10.8 0 (K/uL) Final RBC 04/11/2023 12:10:49 3.80 3.85-5.15 (M/uL) Final Hemoglobin 04/11/2023 12:10:49 12.5 12.0-15.3 (g/dL) Final Anemia reflex testing trigge rs on a HGB < 12.0 for Females and HGB < 13.0 for Males in accordance with the WHO Anemia Guidelines
Anemia reflex testing triggers on a HGB < 12.0 for Females and HGB < 13.0 for Males in accordance with the WHO Anemia Guidelines HCT 04/11/2023 12:10:49 38.4 36.0-45.2 (%) Final MCV 04/11/2023 12:10:49 101.1 81.5-97.5 (fL) Final MCH 04/11/2023 12:10:49 32.9 27.0-34.0 (pg) Final MCHC 04/11/2023 12:10:49 32.6 32.0-36.0 (g/dL) Final RDW 04/11/2023 12:10:49 13.1 11.5-15.5 (%) Final Platelets 04/11/2023 12:10:49 305 140-400 (K /uL) Final MPV 04/11/2023 12:10:49 10.6 6.6-11.1 ( fL) Final Nucleated erythrocytes/100 leukocytes [Ratio] in Blood by Automated count 04/11/2023 12:10:49 0 <=0 (/100 WBCs) Fi nal Performing Location LABORATORY [facility] - [address] [facility] [address]
--- OUTSIDE RECORDS SUMMARY | 2023-07-08 04:59 | External Medical Summary | Summary of Care ---
Author Name Unknown Organization [facility] Address [address] [facility] [address] Phone [phone] Care Team Providers Care Hearse Driver Name Role Phone Evangelina Ordonez PA-C Primary Care Provide r Reason for Visit * Reason Comments Outpatient Testing Encounter Details Date Type Department Care Team (Late st Contact Info) Description 04/11/2023 11:20 AM EST Laboratory Laboratory, [facility] [address] [place] [phone] [facility] [address] [place] [address] 23 weeks gestation of Allergies Active Allergy Reactions Criticality Noted Date [...] Take by mouth. 0 Active Nystatin-Triamcinol one 803296-9.1 UNIT/GM-% External Cream (Mycolog)Indication s:Normal in second [...] money to get more. Never true 04/11/2023 [place] Depression Scale Answer Date Recorded [place] Depression Scale Total 1 04/11/2023 The thought [...] on file documented as of this encounter Plan of Treatment Upcoming Encounters Date Type Department Care Team (Late st Contact Info) Description 04/28/2023 8:45 AM EST Office Visit Gynecology/Obstetrics [facility] [address] [facility] [place] [address] Annie Henry CNM [address] [place] [address] 11/20/2023 10:00 AM EDT Office Visit Sleep Disorders Ctr [facility] [address] [place] [phone] Genoveva Kevin DO [address] [place] [address] Pending Results Name Type Priority Associated Diagnoses Date /Time CBC WITH WBC DIFFERENTIAL AND ANEMIA REFLEX WORKUP Lab Routine 23 weeks gestation of 04/11/2023 12:10 PM EST 50-G GESTATIONAL GLUCOSE, 1 HOUR Lab Routine 23 weeks gestation of 04/11/2023 12:10 PM EST SYPHILIS ANTIBODY SCREEN WITH REFLEX TO RPR Lab Routine 23 weeks gestation of 04/11/2023 12:10 PM EST ANEMIA CBC Lab Routine 23 weeks gestation of 04/11/2023 12:10 PM EST DIFFERENTIAL, AUTOMATED Lab Routine 23 weeks gestation of 04/11/2023 12:10 PM EST ANEMIA REFLEX CHEMISTRY HOLD Lab Routine 23 weeks gestation of 04/11/2023 12:10 PM EST SYPHILIS ANTIBODY SCREEN Lab Routine 23 weeks gestation of 04/11/2023 12:10 PM EST Health Maintenance Due Date Last Done [...] Visit Diagnoses Diagnosis 23 weeks gestation of state, incidental documented in this encounter Care Teams Hearse Driver Relationship Specialty Start Date End Date Evangelina Ordonez PA-C [address] [facility] [place] [address] PCP - General Physician Cartographic Aide 09/10/21 documented as of this encounter
--- OUTSIDE RECORDS SUMMARY | 2023-07-08 04:59 | External Medical Summary ---
Author Name Unknown Address Unknown Organization [id number]:[facility]ORY [facility] 57[address] - [address] [place] [address] Laboratory Report Ordering Provider Test Date Status LAURA,DEBBY 01/17/2023 09:45:30 Final Observation Date Value Abnormality Reference (Units ) Status Glucose [Moles/volume] in Serum or Plasma --1 hour post 50 g glucose PO 01/17/2023 09:45:30 107 70-129 (mg/dL) Final Performing Location [facility] 57-[address] 0 - [address] [place] [address]
--- OUTSIDE RECORDS SUMMARY | 2023-07-08 04:59 | External Medical Summary ---
Author Name Unknown Address Unknown Organization [id number]:LAB[facility]ATORY [facility] 57-[address] - [address] [place] [address] Laboratory Report Ordering Provider Test Date Status JULIO CESAR BUSTAMANTE 04/11/2023 12:10:49 Final Observation Date Value Abnormality Reference (Units ) Status Glucose [Moles/volume] in Serum or Plasma --1 hour post 50 g glucose PO 04/11/2023 12:10:49 120 70-129 (mg/dL) Final Performing Location LABORATORY [facility] 57-[address] 0 - [address] [place] [address]
--- OUTSIDE RECORDS SUMMARY | 2023-07-08 04:59 | External Medical Summary ---
Author Name Unknown Address Unknown Organization [id number]:LABORATORY [facility] - [address] [facility] [place] [address] Laboratory Report Ordering Provider Test Date Status JULIO CESAR BUSTAMANTE 04/11/2023 12:10:49 Final Observation Date Value Abnormality Reference (Units ) Status SYNC LEUKOCYTES IN BLOOD BY AUTOMATED COUNT 04/11/2023 12:10:49 9.30 4.00-10.80 (K/uL) Final Segs 04/11/2023 12:10:49 60.6 40.0-75.0 (%) Final Lymphs % 04/11/2023 12:10:49 25.9 18.0-42.0 (%) Final Monos 04/11/2023 12:10:49 11.7 Above high normal 1.0-11.0 (%) Final Eosinophils 04/11/2023 12:10:49 1.0 0.0-6.0 (%) Final Basos 04/11/2023 12:10:49 0.2 0.0-2.0 (%) Final Immature Granulocyte, Percent 04/11/2023 12:10:49 0.6 0.0-2.0 (%) Final Absolute Segs 04/11/2023 12:10:49 5.63 1.80-7.70 (K/uL) Final Lymphs, absolute 04/11/2023 12:10:49 2.41 1.00-4.80 (K/ul) Final Monos, Abs 04/11/2023 12:10:49 1.09 0.00-1.10 (K/uL) Final Eos, Abs 04/11/2023 12:10:49 0.09 0.00-0.70 (K/uL) Final Basos, Abs 04/11/2023 12:10:49 0.02 0.00-0.20 (K/uL) Final Immature Granulocytes, Number 04/11/2023 12:10:49 0.06 0.00-0.20 (K/uL) Final Performing Location LABORATORY [facility] - [address] [facility] [address]
--- OUTSIDE RECORDS SUMMARY | 2023-07-08 04:59 | External Medical Summary ---
Author Name Unknown Address Unknown Organization [id number]:LABORATORY [facility] [place] - [address] [facility] [address] [facility] [address] Laboratory Report Ordering Provider Test Date Status JULIO CESAR BUSTAMANTE 04/11/2023 12:10:49 Final Observation Date Value Abnormality Reference (Units ) Status Treponema pallidum Ab [Presence] in Serum by Immunoassay 04/11/2023 12:10:49 Nonreactive Nonreactive Final No serologic evidence of syp hilis. No additional testing clinicially indicated at this time. Consider repeat testing in 2-4 weeks if acute or primary syphilis is suspected. Performing Location LABORATORY [facility] - [address] [facility] [address]
--- OUTSIDE RECORDS SUMMARY | 2023-07-08 04:59 | External Medical Summary | Summary of Care ---
Author Name Unknown Organization [facility] Address [address] [facility] [address] Phone [phone] Care Team Providers Care Continuous Linter Drier Operator Name Role Phone Evangelina Ordonez PA-C Primary Care Provide r Reason for Visit * Reason Comments Outpatient Testing Encounter Details Date Type Department Care Team Description 01/17/2023 Laboratory Laboratory, [facility] [phone] [facility] [address] [facility] [address] Obesity in , antepartum Allergies Active Allergy [...] Oral Tablet Take by mouth. 0 Active documented as of this encounter (statuses [...] Radiology 02/14/2023 Office Visit Gynecology Obstetrics Backer, BrookeAB López [address] [place] [address] 11/20/2023 Office Visit Sleep Disorders Kevin Genoveva YarbroughDO [address] [place] [address] Pending Results Name Type Priority Associated Diagnoses Date /Time 50-G GESTATIONAL GLUCOSE, 1 HOUR Lab Routine Obesity in , antepartum 01/17/2023 9:45 AM EDT Health Maintenance Due Date Last Done Comments [...] as of this encounter Visit Diagnoses Diagnosis Obesity in , antepartum Obesity complicating , childbirth, or the puerperium, antepartum condition or complication documented in this encounter Care Teams Continuous Linter Drier Operator Relationship Specialty Start Date End Date Evangelina Ordonez PA-C [address] [place] [address] PCP - General Physician Research Chemical Engineer 09/10/21 documented as of this encounter
--- OUTSIDE RECORDS SUMMARY | 2023-07-08 04:59 | External Medical Summary | Summary of Care ---
Author Name Unknown Organization [facility] Address [address] [facility] [place] [address] Phone [phone] Care Team Providers Care Product Safety Tester Name Role Phone Evangelina Ordonez PA-C Primary Care Provide r Reason for Visit * Reason Comments Return Visit Encounter Details Date Type Department Care Team (Late st Contact Info) Description 04/11/2023 11:30 AM EST Office Visit Gynecology/Obstetric s Sherrie Kamara [address] [place] [phone] Charlene Douglas PA-C [address] [place] [address] Normal in third trimester*; Maternal asthma complicating [...] Take by mouth. 0 Active Nystatin-Triamcinol one 674751-5.1 UNIT/GM-% External Cream (Mycolog)Indication s:Normal in second [...] money to get more. Never true 04/11/2023 [place] Depression Scale Answer Date Recorded [place] Depression Scale Total 1 04/11/2023 The thought [...] 04/28/2023 8:45 AM EST [facility] [address] [place] [address] Annie Henry, JENNA [address] [facility] [place] [address] 11/20/2023 10:00 AM EDT Office [facility] [address] [place] [phone] Genoveva Kevin DO [address] [place] [address] Health Maintenance Due Date Last Done Comments [...] complication documented in this encounter Care Teams Product Safety Tester Relationship Specialty Start Date End Date Evangelina Ordonez PA-C [address] [place] [address] PCP - General Physician Housekeeping Department Worker 09/10/21 documented as of this encounter
--- NOTE | 2023-07-08 08:01 | Obstetrical Progress Note ---
Date of Service July 08, 2023 Assessment & Plan (1) Post-term , 40-42 weeks of gestation: Plan: Start oxytocin for augmentation, epidural if patient request Anticipate spontaneous vaginal delivery Admission and Anticipated Discharge Date Admission Date: July 08, 2023 Subjective Patient comfortable and was ambulating since admission. No complaints at this time. Notes good movement Is agreeable to AROM at this time Physical Exam Genitourinary: heart tracing: Baseline 130, moderate variability, positive accelerations no decelerations, category 1 tracing Tocometer: 1 contraction Cervix: 3/70/-2, AROM performed with thick meconium stained fluid, IUPC was placed Results & Data Vital Signs (Past 12 Hours) Vital Signs Temp Pulse Resp BP O2 Del Method 07/08/23 07:05 36.4 C L 20 07/08/23 07:00 60 140/90 07/08/23 06:59 20 07/08/23 06:59 20 07/08/23 03:40 36.4 C L 18 Room Air 07/08/23 03:36 36.4 C L 84 18 139/79
[2023-07-08] MEDS: LACTATED RINGER'S 1,000 ML IV PRN (08:04)
[2023-07-08] MEDS ORDERED: FLUTICASONE PROPIONATE NA SPR 16 GM BTL SCH (09:00)
[2023-07-08] MEDS: PRENATAL VITAMIN 1 TAB PO SCH (09:13)
[2023-07-08] MEDS: OXYTOCIN 30 UNITS/NSS 30 UNITS/500 ML BAG IV PRN (09:27)
[2023-07-08 11:20] LABS: Basophils # (auto) 0.04 K/uL (0.00-0.20); Basophils % (auto) 0.3 %; Eosinophils # (auto) 0.06 K/uL (0.00-0.50); Eosinophils % (auto) 0.5 %; Hematocrit (blood only) 39.1 % (37.0-47.0); Hemoglobin 13.1 g/dl (12.0-16.0); Immature Granulocytes # (auto) 0.08 K/uL (0.01-0.20); Immature Granulocytes % (auto) 0.6 %; Lymphocytes # (auto) 2.45 K/uL (1.20-3.40); Lymphocytes % (auto) 18.7 %; Mean Corpuscular Hemoglobin 31.4 pg (25.0-34.0); Mean Corpuscular Hgb Conc 33.5 g/dL (32.0-36.0); Mean Corpuscular Volume 93.8 fL (80.0-100.0); Mean Platelet Volume 10.2 fL (9.4-12.4); Monocytes # (auto) 1.25 K/uL (0.11-0.59); Monocytes % (auto) 9.5 %; Neutrophils # (auto) 9.24 K/uL (1.40-6.50); Neutrophils % (auto) 70.4 %; Platelet Count 264 K/uL (130-400); RDW Coefficient of Variation 13.1 % (11.5-14.5); RDW Standard Deviation 45.2 fL (36.4-46.3); Red Blood Count 4.17 M/uL (4.20-5.40); White Blood Count 13.12 K/ul (4.8-10.8)
[2023-07-08 11:34] LABS: Alanine Aminotransferase 16 U/L (7-52); Albumin Globulin Ratio 1.2 (0.9-2); Albumin Level 3.2 gm/dl (3.4-5.0); Alkaline Phosphatase 131 U/L (34-104); Anion Gap 7 (3-11); Aspartate Aminotransferase 19 U/L (13-39); BUN Creatinine Ratio 16.3 (10-20); Bilirubin,Total 0.4 mg/dl (0.2-1.0); Blood Urea Nitrogen 8 mg/dl (6-23); Calcium 8.5 mg/dl (8.6-10.3); Carbon Dioxide 21 mmol/L (21-32); Chloride 105 mmol/L (98-107); Creatinine Clr Calc Pharmacy 201.5 ml/min; Est GFR (African American) > 150.0 ml/min; Est GFR (Non-African American) 130.7 ml/min; Globulin 2.7 gm/dl (2.5-4.0); Glucose 75 mg/dl (70-99(Fasting)); Potassium 3.8 mmol/L (3.5-5.1); Sodium 133 mmol/L (136-145); Total Protein 5.9 gm/dl (6.0-8.3)
--- NOTE | 2023-07-08 11:44 | Anesthesiology Consultation ---
Date of Service July 08, 2023 Assessment & Plan Chart Review Chart Review: Patient NOT seen in Pre Admission Testing and Acceptable Risk for Labor Epidural Consults Requested none ASA ASA2 Proposed Anesthesia Anesthesia Type: Labor Epidural Risk / Benefits Reviewed With: PT / POA / Parent / Guardian, Accepts Plan and Informed Consent Obtained History Height/Weight Height: 5 ft 6 in Weight: 101.151 kg Allergies Allergy/AdvReac Type Severity Reaction Status Date / Time fluticasone AdvReac Migraine Verified 07/08/23 03:32 Medications Home Medications Medication Instructions Recorded Confirmed Last Taken Albuterol (Ventolin Hfa) 2 puff inhalation QID PRN asthma 04/06/15 07/08/23 Unknown ##0 Mometasone Furoate (Nasonex) 2 spray NA DAILY #0 BTLS 04/06/15 07/08/23 07/07/23 [id number] 1 mg 1 tab PO DAILY 07/08/23 07/08/23 07/07/23 tablet Active Medications Generic Name Dose Route Start Last Admin Trade Name Freq PRN Reason Stop Dose Admin Lactated Ringer's 1,000 mls @ 125 mls/hr 07/08/23 04:07 07/08/23 11:43 Lr IV 07/10/23 04:06 125 mls/hr .Q8H PRN Administration L&D Protocol Protocol Oxytocin 30 units in 500 mls @ 6 mls/hr 07/08/23 04:23 07/08/23 10:30 Pitocin 30 Units/Nss IV 07/10/23 04:22 0.36 units/hr .Q24H PRN 6 mls/hr Labor Induction/Augmentation Titration Protocol 0.36 UNITS/HR Prenat Multivit/Alexander/Iron/Folic Ac 1 tab 07/08/23 09:00 07/08/23 09:13 Vitamin 1 Tab PO 08/07/23 08:59 Not Given DAILY FLORIN NPO Date Last Intake of Fluids: 07/08/23 Time Last Intake of Fluids: 11:00 Date Last Intake of Solids: 07/08/23 Time Last Intake of Solids: 02:00 Past Medical History Medical History Uterine contractions at greater than 20 weeks of gestation Abdominal pain GERD (gastroesophageal reflux disease) Asthma Use PRN inhaler, not used in a long time Exercise / Class Metabolic Activity 1 > 8 Run/Swim/Ski/Tennis Past Family History Family History Uncle Hypertension Grandfather (Maternal) Hypertension Diabetes Mother Diabetes Uncle Kidney disease Grandmother (Maternal) Thyroid disease Past Surgical History Surgical History [place] teeth extracted Past Anesthesia History No Hx of Anesthesia Complications and No Family Hx of Anesthesia Complications History of PONV No Hx of PONV and No Hx of Motion Sickness Social History Smoking Status: Never smoker Hx Alcohol Use: No Hx Substance Use: No Review of Systems ROS Unobtainable: All systems reviewed & are unremarkable except as noted in HPI & below Physical Exam Vital Signs Last Vital Signs Temp 36.4 C L 07/08/23 07:05 Pulse 80 07/08/23 11:39 Resp 20 07/08/23 10:30 BP 151/99 H 07/08/23 11:38 Pulse Ox 97 07/08/23 11:39 O2 Del Method Room Air 07/08/23 03:40 ENMT Mouth: no TMJ abnormality Thyromental Distance: > or= 3.5 Finger Breadths Mallampati Class: III Neck normal visual inspection and trachea midline; neck extension not limited Respiratory normal respiratory effort Auscultation: lungs clear to auscultation bilaterally Cardiovascular Rate/Rhythm: regular rate and regular rhythm Heart Sounds: no murmur Musculoskeletal Spine: normal cervical ROM Extremities: full ROM of extremities Neurologic moves all extremities Psychiatric Orientation: alert and oriented x 3 Testing Laboratory Results 07/08/23 11:01 07/08/23 11:01 Blood Type O Positive 07/08/23 04:07 Antibody Screen NEGATIVE 07/08/23 04:07
[2023-07-08] MEDS: BUPIVACAINE 0.25% PF 30 ML VIAL ONE (11:51)
[2023-07-08] MEDS: fentANYL 2 MCG/ML BUPIVacaine 0.125%-NSS 100ML BAG ONE (11:51)
[2023-07-08] MEDS: fentaNYL citrate PF 100 MCG/2 ML VIAL ONE (12:01)
[2023-07-08] MEDS: LIDOCAINE 2%/EPINEPHRINE 1:200,000 20 ML PF ONE (12:02)
[2023-07-08] MEDS ORDERED: NALOXONE HCL 1 MG in SODIUM CHLORIDE 0.9% 1,000 ML IV PRN (12:03)
[2023-07-08] MEDS ORDERED: fentANYL 2 MCG/ML BUPIVacaine 0.125%-NSS 100ML BAG EPI PRN (12:03)
[2023-07-08] MEDS ORDERED: fentaNYL citrate PF 100 MCG/2 ML VIAL EPI PRN (12:03)
[2023-07-08] MEDS ORDERED: NALOXONE HCL 0.4 MG/1 ML VIAL/CARP IV PRN (12:03)
[2023-07-08] MEDS ORDERED: BUPIVACAINE 0.25% PF 30 ML VIAL EPI PRN (12:03)
[2023-07-08] MEDS ORDERED: LIDOCAINE 2% MPF LOCAL 5 ML VIAL EPI PRN (12:03)
[2023-07-08] MEDS ORDERED: NALBUPHINE HCL 5 MG in SYRINGE 0 ML IV PRN (12:03)
[2023-07-08] MEDS ORDERED: ROPIVACAINE 0.5% PF 5 MG/ML 20 ML VIAL EPI PRN (12:03)
[2023-07-08] MEDS ORDERED: SODIUM CHLORIDE 0.9% PF INJ 10 ML VIAL EPI PRN (12:03)
[2023-07-08] MEDS ORDERED: diphenhydrAMINE 50 MG/ML VIAL IV PRN (12:03)
[2023-07-08] MEDS ORDERED: ePHEDrine sulfate 50 MG/ML AMP IV PRN (12:03)
--- NOTE | 2023-07-08 12:24 | Obstetrical Progress Note ---
Date of Service July 08, 2023 Assessment & Plan (1) Post-term , 40-42 weeks of gestation: Plan: Patient to start pushing anticipate spontaneous vaginal delivery (2) Elevated BP without diagnosis of hypertension: Plan: PIH labs within normal limits Protein creatinine ratio pending Admission and Anticipated Discharge Date Admission Date: July 08, 2023 Subjective Patient comfortable on epidural at this time Physical Exam Genitourinary: heart tracing: Baseline 155, minimal variability, prolonged deceleration that recovered with resuscitative measures, Pitocin was turned off [place]: Contractions every 2 minutes, oxytocin was at 6 milliunits/h, currently off Cervix: 10/100/+1 Results & Data Vital Signs (Past 12 Hours) Vital Signs Temp Pulse Resp BP Pulse Ox O2 Del Method 07/08/23 12:20 100 07/08/23 12:20 87 07/08/23 12:20 89 125/62 07/08/23 12:18 102 H 127/60 07/08/23 12:16 98 H 131/59 L 07/08/23 12:15 100 H 99 07/08/23 12:14 98 H 165/63 H 07/08/23 12:12 96 H 135/77 07/08/23 12:10 93 07/08/23 12:10 79 07/08/23 12:10 70 114/56 L 07/08/23 12:08 69 116/58 L 07/08/23 12:06 86 143/73 H 07/08/23 12:05 97 H 93 07/08/23 12:04 92 H 144/78 H 07/08/23 12:03 75 94 07/08/23 12:02 92 H 151/77 H 07/08/23 12:00 80 162/82 H 96 07/08/23 11:58 86 156/98 H 07/08/23 11:56 94 H 153/89 H 07/08/23 11:55 93 H 98 07/08/23 11:54 82 148/83 H 07/08/23 11:52 72 90 07/08/23 11:49 106 H 99 07/08/23 11:44 91 H 99 07/08/23 11:39 80 97 07/08/23 11:38 85 151/99 H 07/08/23 11:34 74 95 07/08/23 11:23 81 143/90 H 07/08/23 10:58 83 176/90 H 07/08/23 10:53 79 143/90 H 07/08/23 10:47 77 140/86 07/08/23 10:41 87 171/96 H 07/08/23 10:30 20 07/08/23 10:30 20 07/08/23 10:00 20 07/08/23 10:00 20 07/08/23 09:31 76 141/79 H 07/08/23 09:30 18 07/08/23 09:30 18 07/08/23 09:29 62 149/94 H 07/08/23 09:13 63 136/85 07/08/23 09:08 73 143/85 H 07/08/23 09:03 57 L 135/86 07/08/23 08:59 74 143/90 H 07/08/23 08:53 55 L 137/91 07/08/23 08:49 68 139/90 07/08/23 08:44 65 135/84 07/08/23 08:38 68 127/89 07/08/23 08:30 20 07/08/23 08:30 20 07/08/23 07:05 36.4 C L 20 07/08/23 07:00 60 140/90 07/08/23 06:59 20 07/08/23 06:59 20 07/08/23 03:40 36.4 C L 18 Room Air 07/08/23 03:36 36.4 C L 84 18 139/79 Laboratory Results Laboratory Results WBC 13.12 K/ul (4.8-10.8) H 07/08/23 11:01 RBC 4.17 M/uL (4.20-5.40) L 07/08/23 11:01 Hgb 13.1 g/dl (12.0-16.0) 07/08/23 11:01 Hct 39.1 % (37.0-47.0) 07/08/23 11:01 MCV 93.8 fL (80.0-100.0) 07/08/23 11:01 MCH 31.4 pg (25.0-34.0) 07/08/23 11:01 MCHC 33.5 g/dL (32.0-36.0) 07/08/23 11:01 RDW Std Deviation 45.2 fL (36.4-46.3) 07/08/23 11:01 RDW Coeff of Figueroa 13.1 % (11.5-14.5) 07/08/23 11:01 Plt Count 264 K/uL (130-400) 07/08/23 11:01 MPV 10.2 fL (9.4-12.4) 07/08/23 11:01 Immature Gran % (Auto) 0.6 % 07/08/23 11:01 Neut % (Auto) 70.4 % 07/08/23 11:01 Lymph % (Auto) 18.7 % 07/08/23 11:01 Ev[place]eline % (Auto) 9.5 % 07/08/23 11:01 Eos % (Auto) 0.5 % 07/08/23 11:01 Baso % (Auto) 0.3 % 07/08/23 11:01 Neut # (Auto) 9.24 K/uL (1.40-6.50) H 07/08/23 11:01 Lymph # (Auto) 2.45 K/uL (1.20-3.40) 07/08/23 11:01 Ev[place]eline # (Auto) 1.25 K/uL (0.11-0.59) H 07/08/23 11:01 Eos # (Auto) 0.06 K/uL (0.00-0.50) 07/08/23 11:01 Baso # (Auto) 0.04 K/uL (0.00-0.20) 07/08/23 11:01 Immature Gran # (Auto) 0.08 K/uL (0.01-0.20) 07/08/23 11:01 Sodium 133 mmol/L (136-145) L 07/08/23 11:01 Potassium 3.8 mmol/L (3.5-5.1) 07/08/23 11:01 Chloride 105 mmol/L (98-107) 07/08/23 11:01 Carbon Dioxide 21 mmol/L (21-32) 07/08/23 11:01 Anion Gap 7 (3-11) 07/08/23 11:01 BUN 8 mg/dl (6-23) 07/08/23 11:01 Creatinine 0.49 mg/dl (0.6-1.2) L 07/08/23 11:01 Est Cr Clr Drug Dosing 201.5 ml/min 07/08/23 11:01 Est GFR ( Amer) > 150.0 ml/min 07/08/23 11:01 Est GFR (Non-Af Amer) 130.7 ml/min 07/08/23 11:01 BUN/Creatinine Ratio 16.3 (10-20) 07/08/23 11:01 Glucose 75 mg/dl (70-99(Fasting)) 07/08/23 11:01 Calcium 8.5 mg/dl (8.6-10.3) L 07/08/23 11:01 Total Bilirubin 0.4 mg/dl (0.2-1.0) 07/08/23 11:01 AST 19 U/L (13-39) 07/08/23 11:01 ALT 16 U/L (7-52) 07/08/23 11:01 Alkaline Phosphatase 131 U/L (34-104) H 07/08/23 11:01 Total Protein 5.9 gm/dl (6.0-8.3) L 07/08/23 11:01 Albumin 3.2 gm/dl (3.4-5.0) L 07/08/23 11:01 Globulin 2.7 gm/dl (2.5-4.0) 07/08/23 11:01 Albumin/Globulin Ratio 1.2 (0.9-2) 07/08/23 11:01 Blood Type O Positive 07/08/23 04:07 Antibody Screen NEGATIVE 07/08/23 04:07
[2023-07-08] MEDS: fentaNYL citrate PF 100 MCG/2 ML VIAL EPI STA (13:47)
[2023-07-08] MEDS: BUPIVACAINE 0.25% PF 30 ML VIAL EPI STA (13:47)
[2023-07-08] MEDS: LIDOCAINE 2%/EPINEPHRINE 1:200,000 20 ML PF EPI STA (13:47)
[2023-07-08] MEDS: SODIUM CHLORIDE 0.9% PF INJ 10 ML VIAL ONE (13:47)
[2023-07-08] MEDS: SODIUM CHLORIDE 0.9% PF INJ 10 ML VIAL EPI STA (13:48)
[2023-07-08] MEDS ORDERED: ACETAMINOPHEN 325 MG TAB PO PRN (16:02)
[2023-07-08] MEDS ORDERED: bisacodyL 10 MG SUPP PR PRN (16:02)
[2023-07-08] MEDS ORDERED: HYDROCORTISONE ACETATE 25 MG SUPP PR PRN (16:02)
[2023-07-08] MEDS ORDERED: oxyCODONE/ACETAMINOPHEN 5mg/325mg TAB PO PRN (16:02)
--- NOTE | 2023-07-08 16:11 | Delivery Summary ---
Vaginal Delivery Summary Date of Service July 08, 2023 Vaginal Delivery Summary Delivery Note History synopsis: Patient was admitted overnight for rule out rupture in labor. She was initially scheduled for induction today and kept for induction. She ambulated in the halls and made little cervical progress. She was then checked by myself this morning and found to be 3 cm, and was agreeable to a ROM and start of oxytocin for augmentation. During this time category 1 tracing. AROM was performed and noted thick meconium fluid. IUPC was placed for monitoring of oxytocin augmentation. She started on Pit for augmentation and throughout the day made cervical change to 4 cm and received an epidural for pain control. Noted prolonged deceleration and she was checked and found to be complete. Strip recovered, patient was restarted on oxytocin for augmentation. She then pushed with nursing and make good progress. She remained having a category 2 tracing during pushing, and then I was called for delivery Delivery Summary: Patient was placed in the dorsal lithotomy position. She was prepped and draped in the usual sterile fashion. Upon maternal pushing the head was delivered atraumatically followed by the anterior shoulders, posterior shoulders then the remainder of the infants body. The infant was immediately placed on mother's abdomen, dried and stimulated. Delayed cord clamping for 60 seconds was performed. The infants mouth and nose were bulb suctioned by nursing staff. A female was delivered at 1546, weight pending with APGARS of 8 at 1 minute and 9 at 5 minutes. The infant was handed off to the awaiting nursing staff. Cord blood gases were not obtained. The placenta delivered intact with three vessel cord. Placenta was sent to pathology. Thirty units of Pitocin were added to the IV fluid and allowed to run freely. Uterine massage was performed until uterus was deemed firm. Upon inspection of the perineum, cervix was intact. Second degree laceration was noted which was repaired with 3-0 vicryl in the usual fashion. Upon re-inspection the patient was hemostatic. Uterus again massaged and found to be firm. Needle and sponge counts were correct. Patient was stable and allowed to recover in L&D room. Infant was stable and remained in room with mother in the labor and delivery unit. EBL 300mls
[2023-07-08 16:46] LABS: Total Protein Urine Random 71.7 mg/dl (0-11.9)
[2023-07-08 16:52] LABS: Creatinine Urine Random 284.3 mg/dl; Protein Creatinine Ratio Urine 0.3 (0-0.2)
[2023-07-08] MEDS: ePHEDrine sulfate 50 MG/ML AMP ONE (18:07)
[2023-07-08] MEDS: DIPHTHER/TETAN/PERTUS Vaccine (Tdap, Adol/Adult) 0.5mL IM ONE (18:07)
--- NOTE | 2023-07-08 18:32 | Anesthesia Procedure Note ---
Date of Service July 08, 2023 Anesthesia Post Epidural Note Vital Signs Vital Signs: Temp Pulse Resp BP Pulse Ox O2 Del Method 36.4 C L 75 20 127/63 96 Room Air 07/08/23 07:05 07/08/23 18:12 07/08/23 17:42 07/08/23 18:12 07/08/23 15:56 07/08/23 03:40 Notes Mental Status: alert / awake / arousable and participated in evaluation Nausea / Vomiting: adequately controlled Pain: adequately controlled Airway Patency, RR, SpO2: stable & adequate BP & HR: stable & adequate Hydration State: stable & adequate Neuraxial Anesthesia: was administered and sensory block is resolving Anesthetic Complications: no major complications apparent Epidural: Removed without complications and With tip intact
[2023-07-08] MEDS: IBUPROFEN 600 MG TAB PO PRN (21:34)
[2023-07-08] MEDS: DOCUSATE SODIUM 100 MG CAP PO SCH (21:34)
[2023-07-08] MEDS: BENZOCAINE 20% SPRY 85 APPLN/85 GM CAN EXT PRN (21:42)
[2023-07-09] MEDS ORDERED: PRENATAL VITAMIN 1 TAB PO SCH (08:00)
[2023-07-09] MEDS: FERROUS SULFATE 325 MG TAB PO SCH (08:03)
[2023-07-09 09:27] LABS: Hematocrit (blood only) 32.9 % (37.0-47.0); Hemoglobin 11.1 g/dl (12.0-16.0); Mean Corpuscular Hemoglobin 31.8 pg (25.0-34.0); Mean Corpuscular Hgb Conc 33.7 g/dL (32.0-36.0); Mean Corpuscular Volume 94.3 fL (80.0-100.0); Mean Platelet Volume 10.5 fL (9.4-12.4); Platelet Count 261 K/uL (130-400); RDW Coefficient of Variation 13.5 % (11.5-14.5); RDW Standard Deviation 46.5 fL (36.4-46.3); Red Blood Count 3.49 M/uL (4.20-5.40); White Blood Count 13.41 K/ul (4.8-10.8)
--- NOTE | 2023-07-09 11:09 | Obstetrical Progress Note ---
Date of Service July 09, 2023 Subjective Ambulation: ambulating normally Voiding: no voiding problems Passing Gas:: Yes Diet Tolerance:: regular diet Lochia:: Small Feeding Type:: breast feeding Current Pain Level(1-10): 0 doing well Physical Exam Constitutional WD/WN, vitals as above Gastrointestinal (Abdomen) Inspection/Auscultation: abdomen normal to inspection abdomen soft and non-tender Musculoskeletal Extremities: extremities normal to inspection Skin no rashes, warm and dry Neurologic patellar DTR's 2+ bilat, sensation intact Psychiatric A+Ox3, euthymic affect Results & Data Vital Signs (Past 12 Hours) Vital Signs Temp Pulse Resp BP Pulse Ox O2 Del Method 07/09/23 07:25 36.7 C 79 18 119/76 96 Room Air 07/09/23 03:31 36.7 C 86 18 117/74 98 Room Air 07/08/23 23:20 36.7 C 104 H 18 117/74 96 Room Air Laboratory Results Laboratory Results - last 72 hr 07/08/23 07/08/23 07/08/23 04:07 04:16 11:01 WBC 11.51 H 13.12 H RBC 4.06 L 4.17 L Hgb 13.0 13.1 Hct 38.0 39.1 MCV 93.6 93.8 MCH 32.0 31.4 MCHC 34.2 33.5 RDW Std Deviation 45.1 45.2 RDW Coeff of [place] 13.2 13.1 Plt Count 290 264 MPV 10.6 10.2 Immature Gran % (Auto) 0.6 Neut % (Auto) 70.4 Lymph % (Auto) 18.7 Republic % (Auto) 9.5 Eos % (Auto) 0.5 Baso % (Auto) 0.3 Neut # (Auto) 9.24 H Lymph # (Auto) 2.45 Republic # (Auto) 1.25 H Eos # (Auto) 0.06 Baso # (Auto) 0.04 Immature Gran # (Auto) 0.08 Absolute Nucleated RBC Nucleated RBC % (auto) Platelet Estimate Sodium 133 L Potassium 3.8 Chloride 105 Carbon Dioxide 21 Anion Gap 7 BUN 8 Creatinine 0.49 L Est Cr Clr Drug Dosing 201.5 Est GFR ( Amer) > 150.0 Est GFR (Non-Af Amer) 130.7 BUN/Creatinine Ratio 16.3 Glucose 75 Calcium 8.5 L Total Bilirubin 0.4 AST 19 ALT 16 Alkaline Phosphatase 131 H Total Protein 5.9 L Albumin 3.2 L Globulin 2.7 Albumin/Globulin Ratio 1.2 Ur Random Creatinine U Random Total Protein Protein/Creatinin Ratio Blood Type O Positive Antibody Screen NEGATIVE 07/08/23 07/09/23 07/09/23 16:00 06:00 09:01 WBC Cancelled 13.41 H RBC Cancelled 3.49 L Hgb Cancelled 11.1 L Hct Cancelled 32.9 L MCV Cancelled 94.3 MCH Cancelled 31.8 MCHC Cancelled 33.7 RDW Std Deviation Cancelled 46.5 H RDW Coeff of [place] Cancelled 13.5 Plt Count Cancelled 261 MPV Cancelled 10.5 Immature Gran % (Auto) Neut % (Auto) Lymph % (Auto) Republic % (Auto) Eos % (Auto) Baso % (Auto) Neut # (Auto) Lymph # (Auto) Republic # (Auto) Eos # (Auto) Baso # (Auto) Immature Gran # (Auto) Absolute Nucleated RBC Cancelled Nucleated RBC % (auto) Cancelled Platelet Estimate Cancelled Sodium Potassium Chloride Carbon Dioxide Anion Gap BUN Creatinine Est Cr Clr Drug Dosing Est GFR ( Amer) Est GFR (Non-Af Amer) BUN/Creatinine Ratio Glucose Calcium Total Bilirubin AST ALT Alkaline Phosphatase Total Protein Albumin Globulin Albumin/Globulin Ratio Ur Random Creatinine 284.3 U Random Total Protein 71.7 H Protein/Creatinin Ratio 0.3 H Blood Type Antibody Screen
[2023-07-09] MEDS: bisacodyL 5 MG TABEC PO SCH (20:23)
[2023-07-10 06:50] LABS: Hematocrit (blood only) 33.7 % (37.0-47.0); Hemoglobin 11.1 g/dl (12.0-16.0)
--- NOTE | 2023-07-10 08:46 | Obstetrical Progress Note ---
Date of Service July 10, 2023 Assessment & Plan Admission and Anticipated Discharge Date Admission Date: July 08, 2023 Subjective Patient is seen and examined. She feels well, no complaints. Ambulating without dizziness Voiding without difficulty Tolerating regular diet with out N&V Bleeding is minimal No fever/ chills/ CP/ SOB/ N&V/ Leg pain Breast feeding without problems Vital Signs Temp Pulse Resp BP Pulse Ox O2 Del Method 07/10/23 08:35 36.8 C 84 18 112/82 98 Room Air 07/10/23 00:10 36.7 C 73 16 122/75 Room Air Lab Results 07/08/23 07/08/23 07/08/23 Range/Units 04:07 04:16 11:01 WBC 11.51 H 13.12 H (4.8-10.8) K/ul RBC 4.06 L 4.17 L (4.20-5.40) M/uL Hgb 13.0 13.1 (12.0-16.0) g/dl Hct 38.0 39.1 (37.0-47.0) % MCV 93.6 93.8 (80.0-100.0) fL MCH 32.0 31.4 (25.0-34.0) pg MCHC 34.2 33.5 (32.0-36.0) g/dL RDW Std Deviation 45.1 45.2 (36.4-46.3) fL RDW Coeff of [place] 13.2 13.1 (11.5-14.5) % Plt Count 290 264 (130-400) K/uL MPV 10.6 10.2 (9.4-12.4) fL Immature Gran % (Auto) 0.6 % Neut % (Auto) 70.4 % Lymph % (Auto) 18.7 % Garvin % (Auto) 9.5 % Eos % (Auto) 0.5 % Baso % (Auto) 0.3 % Neut # (Auto) 9.24 H (1.40-6.50) K/uL Lymph # (Auto) 2.45 (1.20-3.40) K/uL Garvin # (Auto) 1.25 H (0.11-0.59) K/uL Eos # (Auto) 0.06 (0.00-0.50) K/uL Baso # (Auto) 0.04 (0.00-0.20) K/uL Immature Gran # (Auto) 0.08 (0.01-0.20) K/uL Absolute Nucleated RBC Nucleated RBC % (auto) Platelet Estimate Sodium 133 L (136-145) mmol/L Potassium 3.8 (3.5-5.1) mmol/L Chloride 105 (98-107) mmol/L Carbon Dioxide 21 (21-32) mmol/L Anion Gap 7 (3-11) BUN 8 (6-23) mg/dl Creatinine 0.49 L (0.6-1.2) mg/dl Est Cr Clr Drug Dosing 201.5 ml/min Est GFR ( Amer) > 150.0 ml/min Est GFR (Non-Af Amer) 130.7 ml/min BUN/Creatinine Ratio 16.3 (10-20) Glucose 75 (70-99(Fasting)) mg/dl Calcium 8.5 L (8.6-10.3) mg/dl Total Bilirubin 0.4 (0.2-1.0) mg/dl AST 19 (13-39) U/L ALT 16 (7-52) U/L Alkaline Phosphatase 131 H (34-104) U/L Total Protein 5.9 L (6.0-8.3) gm/dl Albumin 3.2 L (3.4-5.0) gm/dl Globulin 2.7 (2.5-4.0) gm/dl Albumin/Globulin Ratio 1.2 (0.9-2) Ur Random Creatinine mg/dl U Random Total Protein (0-11.9) mg/dl Protein/Creatinin Ratio (0-0.2) Blood Type O Positive Antibody Screen NEGATIVE 07/08/23 07/09/23 07/09/23 Range/Units 16:00 06:00 09:01 WBC Cancelled 13.41 H (4.8-10.8) K/ul RBC Cancelled 3.49 L (4.20-5.40) M/uL Hgb Cancelled 11.1 L (12.0-16.0) g/dl Hct Cancelled 32.9 L (37.0-47.0) % MCV Cancelled 94.3 (80.0-100.0) fL MCH Cancelled 31.8 (25.0-34.0) pg MCHC Cancelled 33.7 (32.0-36.0) g/dL RDW Std Deviation Cancelled 46.5 H (36.4-46.3) fL RDW Coeff of [place] Cancelled 13.5 (11.5-14.5) % Plt Count Cancelled 261 (130-400) K/uL MPV Cancelled 10.5 (9.4-12.4) fL Immature Gran % (Auto) % Neut % (Auto) % Lymph % (Auto) % Garvin % (Auto) % Eos % (Auto) % Baso % (Auto) % Neut # (Auto) (1.40-6.50) K/uL Lymph # (Auto) (1.20-3.40) K/uL Garvin # (Auto) (0.11-0.59) K/uL Eos # (Auto) (0.00-0.50) K/uL Baso # (Auto) (0.00-0.20) K/uL Immature Gran # (Auto) (0.01-0.20) K/uL Absolute Nucleated RBC Cancelled Nucleated RBC % (auto) Cancelled Platelet Estimate Cancelled Sodium (136-145) mmol/L Potassium (3.5-5.1) mmol/L Chloride (98-107) mmol/L Carbon Dioxide (21-32) mmol/L Anion Gap (3-11) BUN (6-23) mg/dl Creatinine (0.6-1.2) mg/dl Est Cr Clr Drug Dosing ml/min Est GFR ( Amer) ml/min Est GFR (Non-Af Amer) ml/min BUN/Creatinine Ratio (10-20) Glucose (70-99(Fasting)) mg/dl Calcium (8.6-10.3) mg/dl Total Bilirubin (0.2-1.0) mg/dl AST (13-39) U/L ALT (7-52) U/L Alkaline Phosphatase (34-104) U/L Total Protein (6.0-8.3) gm/dl Albumin (3.4-5.0) gm/dl Globulin (2.5-4.0) gm/dl Albumin/Globulin Ratio (0.9-2) Ur Random Creatinine 284.3 mg/dl U Random Total Protein 71.7 H (0-11.9) mg/dl Protein/Creatinin Ratio 0.3 H (0-0.2) Blood Type Antibody Screen 07/10/23 Range/Units 06:21 WBC (4.8-10.8) K/ul RBC (4.20-5.40) M/uL Hgb 11.1 L (12.0-16.0) g/dl Hct 33.7 L (37.0-47.0) % MCV (80.0-100.0) fL MCH (25.0-34.0) pg MCHC (32.0-36.0) g/dL RDW Std Deviation (36.4-46.3) fL RDW Coeff of [place] (11.5-14.5) % Plt Count (130-400) K/uL MPV (9.4-12.4) fL Immature Gran % (Auto) % Neut % (Auto) % Lymph % (Auto) % [place]vin % (Auto) % Eos % (Auto) % Baso % (Auto) % Neut # (Auto) (1.40-6.50) K/uL Lymph # (Auto) (1.20-3.40) K/uL [place]vin # (Auto) (0.11-0.59) K/uL Eos # (Auto) (0.00-0.50) K/uL Baso # (Auto) (0.00-0.20) K/uL Immature Gran # (Auto) (0.01-0.20) K/uL Absolute Nucleated RBC Nucleated RBC % (auto) Platelet Estimate Sodium (136-145) mmol/L Potassium (3.5-5.1) mmol/L Chloride (98-107) mmol/L Carbon Dioxide (21-32) mmol/L Anion Gap (3-11) BUN (6-23) mg/dl Creatinine (0.6-1.2) mg/dl Est Cr Clr Drug Dosing ml/min Est GFR ( Amer) ml/min Est GFR (Non-Af Amer) ml/min BUN/Creatinine Ratio (10-20) Glucose (70-99(Fasting)) mg/dl Calcium (8.6-10.3) mg/dl Total Bilirubin (0.2-1.0) mg/dl AST (13-39) U/L ALT (7-52) U/L Alkaline Phosphatase (34-104) U/L Total Protein (6.0-8.3) gm/dl Albumin (3.4-5.0) gm/dl Globulin (2.5-4.0) gm/dl Albumin/Globulin Ratio (0.9-2) Ur Random Creatinine mg/dl U Random Total Protein (0-11.9) mg/dl Protein/Creatinin Ratio (0-0.2) Blood Type Antibody Screen PE: General: Alert, orientedx3, NAD Abd: soft, NT, fundus firm, below Umbilicus Perineum intact, Lochia rubra minimal Ext; NT, no edema AP: 32 yo s/p , ppd# 2 VSS Afebrile doing well Continue routine care All questions were answered D/C home f/u in office Results & Data Vital Signs (Past 12 Hours) Vital Signs Temp Pulse Resp BP Pulse Ox O2 Del Method 07/10/23 08:35 36.8 C 84 18 112/82 98 Room Air 07/10/23 00:10 36.7 C 73 16 122/75 Room Air
== END 2023-07-10 12:30 | disposition home health service (06) | DRG 807 ==
LOC: 4S1 03:09 → 4E2 18:45